=== PATIENT | female | born 1955 | race Caucasian/White ===

== ENCOUNTER → 2016-05-25 | Outpatient (CLI) | payer BC ==
[~2016-05-25] MED LIST: ACET-1256 PO; ALBU4TAB10 PO; ASPI81TA28 PO; CALC600T9 PO; CHOL2000 PO; DOCU-94 PO; HYDR-5688 PO; IBUP-1277 PO; SIMV10TA2 PO; SYMIN160 INH; VNTHFA/IN INH
[2016-05-25 12:23] LABS: BASO % 0.2 %; BASO ABS # 0.01 K/uL (0-0.2); COMPLETE YES; EOS % 0.2 %; HEMATOCRIT 39.5 % (37-47); IG% 0.3 %; LYMPH % 24.7 %; LYMPH ABS # 1.63 K/uL (1.2-3.4); MEAN CELL VOLUME 96.6 fL (80-100); MEAN CORPUSCULAR HEMOGLOBIN 32.8 pg (25-34); MEAN CORPUSCULAR HGB CONC 33.9 g/dl (32-36); MEAN PLATELET VOLUME 9.6 fL (7.4-10.4); MONO % 11.2 %; NEUT % 63.4 %; PLATELET COUNT 260 K/uL (130-400); RED BLOOD COUNT 4.09 M/uL (4.2-5.4); WHITE BLOOD COUNT 6.59 K/uL (4.8-10.8)
[2016-05-25 12:46] LABS: ALT/SGPT 18 U/L (12-78); AST/SGOT 18 U/L (15-37); BLOOD UREA NITROGEN 9 mg/dl (7-18); BUN/CREATININE RATIO 14.1 (10-20); CARBON DIOXIDE 28 mmol/L (21-32); CHLORIDE 102 mmol/L (98-107); CHOLESTEROL 231 mg/dl (0-200); CREATININE 0.61 mg/dl (0.60-1.20); GLUCOSE 100 mg/dl (70-99); SODIUM 137 mmol/L (136-145)
[2016-05-25 12:56] LABS: ALB/GLOB RATIO 0.8 (0.9-2); ALKALINE PHOSPHATASE 124 U/L (45-117); CHOLESTEROL/HDL RATIO 4.4; HDL CHOLESTEROL 52 mg/dl; LDL CHOLESTEROL CALCULATED 160 mg/dl; TRIGLYCERIDES 94 mg/dl (0-150); VERY LOW DENSITY LIPOPROT CALC 19 mg/dl
== END | disposition home or self-care (01) ==
LOC: C.LAB1850 09:47
PROVIDERS: ATTEND Internal Medicine
DX: M81.0 Age-related osteoporosis without current pathological fracture (principal)

== ENCOUNTER 2016-09-08 11:00 | Day surgery (SDC) | payer BC ==
[2016-09-01 08:29] VITALS: BMI 17.0
--- NOTE | 2016-09-01 09:00 | PAT Medication Instructions ---
Service Date Sep 01, 2016. Current Home Medication List Albuterol Hfa (Ventolin Hfa), 2-4 PUFFS INH Q6H PRN for PRN Aspirin (Aspirin Ec), 81 MG PO QPM Budesonide/Formoterol Fumarate (Symbicort 160/4.5 Inhaler ), 2 PUFFS INH BID Calcium Carbonate-Vitamin D (Calcium + D), 1 TAB PO QPM Cholecalciferol (Vitamin D3), 1 CAP PO QPM Simvastatin (Zocor), 10 MG PO QPM Medication Instructions For Your Scheduled Surgery - Take the following medications the morning of surgery: Budesonide/Formoterol Fumarate (Symbicort 160/4.5 Inhaler ), 2 PUFFS INH BID Albuterol Hfa (Ventolin Hfa), 2-4 PUFFS INH Q6H PRN for PRN (use if needed; BRING TO HOSPITAL) - Take the following medications as scheduled the night before surgery: Calcium Carbonate-Vitamin D (Calcium + D), 1 TAB PO QPM Cholecalciferol (Vitamin D3), 1 CAP PO QPM Simvastatin (Zocor), 10 MG PO QPM Aspirin (Aspirin Ec), 81 MG PO QPM Budesonide/Formoterol Fumarate (Symbicort 160/4.5 Inhaler ), 2 PUFFS INH BID Albuterol Hfa (Ventolin Hfa), 2-4 PUFFS INH Q6H PRN for PRN If you have any questions please call us at [phone] or [phone] or [phone]
--- NOTE | 2016-09-01 09:31 | DIAGNOSTIC IMAGING REPORT ---
CHEST PREADMISSION(PA/LAT) CLINICAL HISTORY: Preoperative chest COMPARISON STUDY: 02/03/2016 FINDINGS: The chest is emphysematous configuration. There is no failure. There is no focal pulmonary consolidation. There are no pleural effusions. There is a compression fracture involving either the T12 or L1 superior endplate.[ IMPRESSION: Emphysema. No active disease in the chest. Electronically signed by: Riley Titus M.D. 09/01/2016 9:30 AM Dictated Date/Time: 09/01/2016 9:29 AM
[2016-09-01 09:46] LABS: BASO % 0.1 %; BASO ABS # 0.01 K/uL (0-0.2); COMPLETE YES; EOS % 0.8 %; IG% 0.4 %; LYMPH % 30.3 %; LYMPH ABS # 2.53 K/uL (1.2-3.4); MEAN CORPUSCULAR HEMOGLOBIN 32.8 pg (25-34); MEAN CORPUSCULAR HGB CONC 32.8 g/dl (32-36); MEAN PLATELET VOLUME 9.5 fL (7.4-10.4); MONO % 6.7 %; NEUT % 61.7 %; PLATELET COUNT 258 K/uL (130-400); WHITE BLOOD COUNT 8.34 K/uL (4.8-10.8)
[2016-09-01 09:51] LABS: URINE APPEARANCE CLEAR (CLEAR); URINE BILIRUBIN NEG (NEG); URINE COLOR YELLOW; URINE NITRITE NEG (NEG); URINE PH 7.5 (4.5-7.5); URINE SPECIFIC GRAVITY 1.012 (1.000-1.030); UROBILINOGEN NEG (NEG)
[2016-09-01 10:05] LABS: MANUAL MICROSCOPIC REQUIRED? NO; REVIEW REQ? NO
[2016-09-01 10:15] LABS: INR 0.9 (0.9-1.1); PROTHROMBIN TIME (PATIENT) 9.4 SECONDS (9.0-12.0)
[2016-09-01 11:15] LABS: ALB/GLOB RATIO 0.8 (0.9-2); ALT/SGPT 30 U/L (12-78); AST/SGOT 19 U/L (15-37); BLOOD UREA NITROGEN 10 mg/dl (7-18); BUN/CREATININE RATIO 13.5 (10-20); CARBON DIOXIDE 31 mmol/L (21-32); CHLORIDE 102 mmol/L (98-107); CREATININE 0.71 mg/dl (0.60-1.20); GLUCOSE 95 mg/dl (70-99); POTASSIUM 4.7 mmol/L (3.5-5.1); SODIUM 140 mmol/L (136-145)
[2016-09-01 11:17] LABS: ALKALINE PHOSPHATASE 144 U/L (45-117)
[~2016-09-08] VITALS: Ht 167.6 cm; Wt 49.7 kg
[~2016-09-08 11:00] MED LIST changes: -ACET-1256 PO; -ALBU4TAB10 PO; +ATROPINE SULFATE 0.1 MG/ML 5ML SYR IV PRN; +CEFAZOLIN 2000 MG/60 ML D5W IV SCH; -DOCU-94 PO; +EpHEDrine SULFATE INJ 50 MG/ML AMP IV PRN; +FENTANYL CITRATE INJ 50 MCG/1 ML 2 ML VIAL IV PRN; -HYDR-5688 PO; +HYDROmorphone INJ 1 MG/ML SYR IV PRN; -IBUP-1277 PO; +LACTATED RINGER'S 1000ML 1,000 ML IV SCH; +ONDANSETRON INJ 2 MG/ML 2 ML VIAL IV PRN
[2016-09-08] MEDS ORDERED: FENTANYL CITRATE INJ 50 MCG/1 ML 2 ML VIAL ONE (11:12)
[2016-09-08] MEDS ORDERED: MIDAZOLAM HCL 1 MG/ML 2ML VIAL ONE (11:12)
[2016-09-08 11:40] VITALS: BP 132/98; PULSE 78; TEMP 36.6; O2SAT 96; Ht 167.6 cm; Wt 49.7 kg
--- NOTE | 2016-09-08 12:14 | History and Physical ---
History & Physical Date Sep 08, 2016. History of Present Illness The patient is a 61 year old female with complaints of back and leg pain Past Medical/Surgical History Medical Problems: (1) Hyperlipidemia (2) Pneumothorax Additional History Hepatic Disease: No Endocrine Disorder: No Kidney Disease: No Hypertension: No Heart Disease: No Bleeding Tendencies: No Infectious Diseases: No Allergies Coded Allergies: Diclofenac (Unverified Allergy, Severe, HIVES, 09/08/16) Alendronate (Unverified Allergy, Unknown, DEVELOPED ULCER ON ESOPHAGUS, ) Risedronate (Verified Allergy, Unknown, UNKNOWN, 09/08/16) Varenicline (Unverified Allergy, Unknown, GOT VERY MEAN, 09/08/16) Home Medications Scheduled Aspirin (Aspirin Ec), 81 MG PO QPM Budesonide/Formoterol Fumarate (Symbicort 160/4.5 Inhaler ), 2 PUFFS INH BID Calcium Carbonate-Vitamin D (Calcium + D), 1 TAB PO QPM Cholecalciferol (Vitamin D3), 1 CAP PO QPM Simvastatin (Zocor), 10 MG PO QPM Scheduled PRN Albuterol Hfa (Ventolin Hfa), 2-4 PUFFS INH Q6H PRN for PRN Physical Examination Skin: warm/dry Eyes: normal inspection ENT: normal ENT inspection Head: normocephalic Neck: supple Respiratory/Chest: lungs clear Cardiovascular: regular rate, rhythm Abdomen / GI: normal bowel sounds Back: + pertinent finding (persistent back pain loss of range of motion and flexion extension rotation side bending) Extremities: normal range of motion Neurologic/Psych: no motor/sensory deficits Diagnosis Compression fracture L4 vertebrae. Plan includes a kyphoplasty of the L4 vertebra ASA Classification: ASA Class III Plan of Treatment Kyphoplasty L4 vertebra
[2016-09-08] MEDS ORDERED: BUPIVACAINE 0.5 % 5 MG/1 ML MPF 30ML VIAL ONE (12:17)
[2016-09-08] MEDS ORDERED: SCOPOLAMINE 1.5 MG TDSY TD ONE (12:31)
[2016-09-08] MEDS ORDERED: NURSING VERBAL MED ORDER ONE (12:45)
[2016-09-08] MEDS ORDERED: BACITRACIN OINT 15 GM TUBE ONE (12:53)
[2016-09-08] MEDS ORDERED: ONDANSETRON INJ 2 MG/ML 2 ML VIAL ONE (13:27)
[2016-09-08] MEDS ORDERED: ROCURONIUM BROMIDE 10 MG/ML 5 ML VIAL ONE (13:27)
[2016-09-08] MEDS ORDERED: GLYCOPYRROLATE INJ 0.2 MG/ML VIAL ONE (13:27)
[2016-09-08] MEDS ORDERED: LIDOCAINE HCL 2% 2 ML VIAL (20MG/ML) ONE (13:27)
[2016-09-08] MEDS ORDERED: LARYING-O-JET KIT (LTA) ONE ×2 (13:27)
[2016-09-08] MEDS ORDERED: PROPOFOL IV EMULSION 10 MG/ML 20 ML VIAL IV ONE (13:27)
[2016-09-08] MEDS ORDERED: DEXAMETHASONE SOD INJ 4 MG/ML VIAL ONE (13:27)
[2016-09-08] MEDS ORDERED: SODIUM CHLORIDE 0.9% 1000ML 1,000 ML IV SCH (13:44)
[2016-09-08] MEDS ORDERED: MoRPHine SULFATE 4 MG/ML 1 ML CARP\\VIAL IV PRN (13:45)
[2016-09-08] MEDS ORDERED: ONDANSETRON INJ 2 MG/ML 2 ML VIAL IV PRN (13:45)
[2016-09-08] MEDS ORDERED: CEFAZOLIN IV 1,000 MG in DEXTROSE 5% 50ML 50 ML IV SCH (13:45)
[2016-09-08] MEDS ORDERED: OXYCODONE/ACETAMINOPHEN 5-325 TAB PO PRN ×2 (13:45)
[2016-09-08] MEDS ORDERED: HYDR-5688 PO (13:48)
--- NOTE | 2016-09-08 13:50 | Discharge Instructions ---
Discharge Instructions Date of Service Sep 08, 2016. Admission Reason for Admission: Compression Fracture L4 Discharge Discharge Diagnosis / Problem: SAME ABOVE Discharge Goals Goal(s): Decrease discomfort, Improve function Activity Recommendations Activity Limitations: as noted below Lifting Limitations: gradually increase as tolerated Exercise/Sports Limitations: rest today Shower/Bathe: keep incision dry . Instructions / Follow-Up Instructions / Follow-Up MEDICATIONS: Please take your prescriptions as instructed at your pre-op appointment. SPECIAL CARE: The following information is intended to answer some of the common questions and concerns regarding your surgery. Each patient is an individual and receives individual counselling throughout the course of treatment, from diagnosis to surgery all the way through recovery. What follows is not an exhaustive list, but should be a useful guide to some of the common questions and concerns patients have regarding their surgeries. These are not provided to keep you from calling us; rather, they give you something accurate and concrete to reference as you recover from your procedure. If you need us, we are available to you. As always, if you are not sure about something, call us at [phone]. MEDICAL EMERGENCIES: For these conditions, call 911 or go to your local hospital-based Emergency Department - not [facility] or equivalent. * Paralysis * Severe chest pain or difficulty breathing * Swelling or redness of either leg Spine procedures can be rather complex and though complications are rare, they do occur. In such cases, effective advice regarding emergency situations cannot always be addressed over the telephone. You may be referred to the emergency department for more effective management of your problem. Activity Limitations: It is important to give your body time to heal, so please limit your activities : * In general, don't do anything that moves your spine too much. You should avoid contact sports, twisting or heavy lifting while you recover. * 5-10 pounds is all you should attempt to lift. * You should not plan on driving for approximately 3 weeks and you should avoid traveling more than 30-45 minutes at a time. Longer trips should be broken down with walking breaks spaced appropriately. * Physical therapy is not usually required. * Walking and good posture practices will help you recover and regain your function. * Avoid straining or sudden changes in position. * In general, the goal is to take it easy and recover. Don't cause any new problems. Just relax. Showers: * Do not take a bath, use a Jacuzzi or hot tub or otherwise submerge your incision. * It is usually safe to take a shower 4-5 days after your surgery. * Your incision does not require any special creams or ointments. * Simply clean it with soap and water, dry and re-dress with a clean bandage afterwards. Incision: * Keep incision clean, dry and protected until your first follow-up appointment. * Some amount of drainage and redness is normal. Any drainage should be fairly clear and not have a foul odor. * If you feel anything is wrong or you have excessive drainage, please call us. * Your stitches and froylan will be removed 10-14 days after your surgery. At the time of your first post-op visit. * Neck surgeries are typically closed with a suture underneath the skin. The steri-strips over the incision should be maintained until we see you in the office. Bracing: * You may be provided with a back or neck brace to encourage good posture and prevent injury. It will remind you not to do too much as you heal and will alert others to the fact that you have had a surgery. * Back braces may be removed for showers and when you are resting at home. They must be worn when you are walking around for any period of time or for travel. * For neck surgery, you will likely be provided with two cervical collars. The soft collar ([place] or foam rubber) is worn most commonly throughout the day and while sleeping. The plastic collar (provided at the hospital) is for showering/bathing. * Except while eating, collars should remain in place. More specifically, bracing is provided for a purpose and should be worn. * Please obtain your brace or collars prior to your operation and bring them to the hospital with you on the day of surgery. * You should also bring your collars to your post-op appointment with Dr. Beltran. You should always take good care of your body and practice healthy habits, especially following surgery. You should: * Follow your doctor's treatment plan * Sit and stand properly with good posture (ears over shoulders, shoulders over hips) Don't slouch * Learn to lift correctly * Exercise regularly (low-impact aerobic exercise is especially good, but check with your doctor first) * Generally, be up and walking for 5-10 minutes at a time at least 3-4 times per day from the day you get home * Increasing walking to tolerance until you can walk for 20-30 minutes at a time * Attain and maintain a healthy body weight * Eat healthy foods ( a well-balanced, low-fat diet rich in fruits and vegetables) and get enough calcium * Avoid excessive use of alcohol When to call our office - If you notice any of the following: * Increased pain not relieve by pain medicine * Fevers greater then 100 degrees F, chills or flu symptoms * Increased redness around incision * Drainage from the incision that is not clear * Any foul smelling drainage * Swelling or fluid collection beneath the skin Miscellaneous: * In the hospital, you may be given a walker or cane for support while walking. These are temporary needs and are intended to prevent injuries due to falls. You may discontinue them when you feel strong and steady enough on your feet. * Sleep in a comfortable position. We find that many patients find a lounge chair or recliner with several pillows to be beneficial in the early post-operative period. * The support stockings should be used for 7-10 days and may be discontinued when you are back to walking more and conducting usual household activities. No problem is insignificant. We are here to help you and get you well. Contact us at [phone]. Definitions: Foraminotomy: If part of the disc or a bone spur (osteophyte) is pressing on a nerve as it leaves the vertebra (through an exit called the foramen), a foraminotomy may be done. Otomy means "to make an opening." A foraminotomy is making the opening of the foramen larger, so the nerve can exit without being compressed. Laminotomy: Similar to the foraminotomy, a laminotomy makes a larger opening, this time in your bony plate protecting your spinal canal and spinal cord (the lamina). The lamina may be pressing on your nerve, so the surgeon may make more room for the nerves using a laminotomy. Laminectomy: Sometimes, a laminotomy is not sufficient. The surgeon may need to remove all or part of the lamina. This procedure is called a laminectomy. This can often be done at many levels without any harmful effects. Current Hospital Diet Patient's current hospital diet: Discharge Diet Recommended Diet: Regular Diet Procedures Procedures Performed: L4 Kyphoplasty Pending Studies Studies pending at discharge: no Medical Emergencies . Who to Call and When: Medical Emergencies: If at any time you feel your situation is an emergency, please call 911 immediately. . Non-Emergent Contact Non-Emergency issues call your: Primary Care Provider . "Provider Documentation" section prepared by Tristan Cramer. . VTE Core Measure Inpt VTE Proph given/why not?: Treatment not indicated
--- NOTE | 2016-09-08 13:50 | [facility] Operative Report ---
Operative Report Operative Date Sep 08, 2016. Pre-Operative Diagnosis Compression Fracture L4 Vertebrae Post-Operative Diagnosis same Procedure(s) Performed L4 Kyphoplasty Surgeon Dr. Colby Beltran Organizational Development Specialist Surgeon(s) Tristan Cramer PA-C Estimated Blood Loss 20 ML Findings Compression fracture L4 vertebrae Specimens none per surgeon Complication(s) None Disposition Recovery Room / PACU Indications L4 compression fracture failing to heal with conservative measures Description of Procedure Description of procedure Patient was taken to the operating room placed prone on the Janak frame Janak table. We used 2 seeing arms AP and lateral C arms. We rail able to readily identify the L4 compression fracture. She was scrubbed prepped draped sterile. We engaged both pedicles at L4 using first a trocar a hand-held drill then used a balloon. Each side was inflated to approximately 1.5-2 mL volume side took approximately 3-450 mL of pressure we then withdrew the low and placed in the bone cement. 1.5 mL injected to each pedicle in the vertebral body without incident We irrigated closed 3-0 nylon suture skin anesthetized with Marcaine solution. Sterile dressings applied the patient safely returned to recovery room satisfactory and stable no apparent complications. I attest to the content of the Intraoperative Record and any orders documented therein. Any exceptions are noted below.
--- NOTE | 2016-09-08 14:25 | DIAGNOSTIC IMAGING REPORT ---
LUMBAR SPINE 2 OR 3 VIEW CLINICAL HISTORY: 61 years-old Female presenting with L4 KYPHOPLASTY. TECHNIQUE: 1 fluoroscopic spot image of a frontal view of the lumbar spine was obtained as part of an intraoperative procedure. COMPARISON: 07/29/2016. FINDINGS/IMPRESSION: Radiodensity in the region of the L4 vertebral body represents kyphoplasty material. Scoliotic curvature and degenerative changes of the lumbar spine. Please see separately dictated surgical report for further findings. Fluoroscopy dosage (mGy): Not available. Fluoroscopy time: 79 seconds. Number of fluoroscopic spot images: 1. Electronically signed by: Rodriguez Mccabe M.D. 09/08/2016 2:23 PM Dictated Date/Time: 09/08/2016 2:22 PM
[2016-09-08 14:30] VITALS: PULSE 76
--- NOTE | 2016-09-08 14:31 | Anesthesiology Progress Note ---
Anesthesia Post Op Note Date & Time Sep 08, 2016 at 14:31 Vital Signs Pain Intensity: 0 Vital Signs Past 12 Hours Date Time Temp Pulse Resp B/P (MAP) Pulse Ox O2 Delivery O2 Flow Rate FiO2 09/08/16 14:25 36.0 81 18 155/88 94 Room Air 09/08/16 14:15 69 19 164/85 93 Room Air 09/08/16 13:55 99 22 157/94 100 Oxymask 10 09/08/16 13:49 36.0 78 16 174/100 100 Oxymask 10 09/08/16 11:40 36.6 78 18 132/98 (109) 96 Room Air Notes Mental Status: alert / awake / arousable, participated in evaluation Pt Amnestic to Procedure: Yes Nausea / Vomiting: adequately controlled Pain: adequately controlled Airway Patency, RR, SpO2: stable & adequate BP & HR: stable & adequate Hydration State: stable & adequate Anesthetic Complications: no major complications apparent
[2016-09-08 15:10] VITALS: BP 140/69; TEMP 36.4; O2SAT 92
[2016-09-08] MEDS ORDERED: CHECK SCOPOLAMINE PATCH PLACEMENT SCH (16:00)
[2016-09-08] MEDS ORDERED: CHOLECALCIFEROL 1000 INTER.UNIT TAB PO SCH (21:00)
[2016-09-08] MEDS ORDERED: CALCIUM 600MG + VIT D 400 IU TAB PO SCH (21:00)
[2016-09-08] MEDS ORDERED: SIMVASTATIN 10 MG TAB PO SCH (21:00)
[2016-09-08] MEDS ORDERED: ASPIRIN 81 MG ECTAB PO SCH (21:00)
[2016-09-08] MEDS ORDERED: BUDESONIDE/FORMOTEROL FUMARATE 160/4.5 60 PUFFS/INHALER INH SCH (21:00)
== END 2016-09-08 15:35 | disposition home or self-care (01) ==
LOC: C.ACU 11:00
PROVIDERS: ATTEND Orthopaedic Surgery Orthopaedic Surgery of the Spine
DX: M48.56XA Collapsed vertebra, not elsewhere classified, lumbar region, initial encounter for fracture (principal); X58.XXXA Exposure to other specified factors, initial encounter; E78.5 Hyperlipidemia, unspecified; Z79.82 Long term (current) use of aspirin; Z79.899 Other long term (current) drug therapy

== ENCOUNTER 2016-11-18 06:26 | Day surgery (SDC) | payer BC ==
[2016-11-18] VITALS (10 sets, daily range): BP systolic 91–156; BP diastolic 51–75; PULSE 70–103; TEMP 36.7–37.1; O2SAT 94–100; Ht 167.6 cm; Wt 49.0 kg
[~2016-11-18] VITALS: Ht 167.6 cm; Wt 49.0 kg
[~2016-11-18 06:26] MED LIST changes: -ATROPINE SULFATE 0.1 MG/ML 5ML SYR IV PRN; -CEFAZOLIN 2000 MG/60 ML D5W IV SCH; -EpHEDrine SULFATE INJ 50 MG/ML AMP IV PRN; -FENTANYL CITRATE INJ 50 MCG/1 ML 2 ML VIAL IV PRN; +HYDR-5688 PO; -HYDROmorphone INJ 1 MG/ML SYR IV PRN; -LACTATED RINGER'S 1000ML 1,000 ML IV SCH; -ONDANSETRON INJ 2 MG/ML 2 ML VIAL IV PRN
[2016-11-18] MEDS ORDERED: IBUP-1277 PO (07:00)
[2016-11-18] MEDS ORDERED: ACET-1256 PO (07:00)
--- NOTE | 2016-11-18 08:35 | Discharge Instructions ---
Discharge Instructions Procedure Procedure Date: Nov 18, 2016. Reason for visit: Lumbar Spinal Stenosis. Discharge Discharge Date: Nov 18, 2016. Discharge Diagnosis: left leg radiculopathy. Spinal stenosis Instructions Activity Recommendations: 1 Day with no driving/machine use Return to School/Work: no limitations Recommended Home Diet: Resume Previous Diet Allergies Coded Allergies: Diclofenac (Unverified Allergy, Severe, HIVES, 11/18/16) Alendronate (Unverified Allergy, Unknown, DEVELOPED ULCER ON ESOPHAGUS, ) Risedronate (Verified Allergy, Unknown, UNKNOWN, 11/18/16) Varenicline (Unverified Allergy, Unknown, GOT VERY MEAN, 11/18/16) [place] Recommendations: Call your doctor if: * Temperature above 101 degrees * Pain not relieved by pain medicine ordered * There is increased drainage or redness from any incision * You have any unanswered questions or concerns. Your Doctors Instructions noted above were prepared by provider Riley Titus. Patient Signature Section: Patient Instructions Signature Page Lizette Albarado Patient (or Guardian) Signature/Date: I have read and understand the instructions given to me by my caregivers. Caregiver/RN/Doctor Signature/Date: The above-named patient and/or guardian has received patient instructions on this date. + Original Patient Signature Page (only) stays with chart. Please make copy for patient.
[2016-11-18] MEDS ORDERED: ACETAMINOPHEN 500 MG TAB PO PRN (08:45)
--- NOTE | 2016-11-18 09:22 | DIAGNOSTIC IMAGING REPORT ---
CT LUMBAR SPINE POST MYELOGRAM CT DOSE: 563.85 mGy.cm CLINICAL HISTORY: Lumbar spinal stenosis. Left leg radiculopathy. TECHNIQUE: Imaging was performed following a lumbar myelogram. Helical images were acquired in the transverse plane. Sagittal and coronal reformatted imaging was performed. A dose lowering technique was utilized adhering to the principles of ALARA. COMPARISON STUDY: Outside MRI dated 08/17/2016 FINDINGS: There is a superior endplate L1 compression fracture. There is an L4 compression fracture status post a vertebroplasty. There is extruded cement within the L 4-5 disc. There is a superior endplate L5 compression fracture. T12-L1: There is minimal retropulsion of the L1 compression fracture. This does not result in significant spinal stenosis. There is no significant foraminal narrowing. L1-2 level: There is a mild circumferential disc bulge. There is a small amount of epidural contrast anterior to thecal sac. There is no significant spinal or foraminal stenosis. L2-3 level: There is a mild circumferential disc bulge. There is very slight triangular narrowing of the spinal canal. There is no significant foraminal narrowing L3-4 level: There is a mild circumferential disc bulge. There is mild triangular narrowing of the spinal canal. There is minimal bilateral foraminal narrowing. L4-5 level: There is a grade 1 spinal listhesis of L4 and L5. There is a circumferential disc bulge. There is mild triangular spinal stenosis. There is marked left-sided foraminal narrowing. There is mild to moderate right-sided foraminal narrowing. L5-S1 level: There is a mild circumferential disc bulge present. There is no significant spinal or foraminal stenosis. No abnormalities of the conus are visualized. There is a mild spinal curvature convex to the right. IMPRESSION: 1. Old L1 and L4 vertebral body compression fractures 2. Multilevel spondylitic change. Minor spinal canal narrowing at the L2-3, L3-4, and L4-5 levels. 3. Multilevel foraminal narrowing, most pronounced at the L4-5 level on the left Electronically signed by: Riley Titus M.D. 11/18/2016 9:21 AM Dictated Date/Time: 11/18/2016 8:52 AM
--- NOTE | 2016-11-18 09:34 | DIAGNOSTIC IMAGING REPORT ---
LUMBAR MYELOGRAM CLINICAL HISTORY: Low back pain with left leg radiculopathy COMPARISON STUDY: Outside MRI dated 08/09/2016 FINDINGS: A timeout was performed. The risks of the procedure were explained the patient informed consent was obtained. Patient prepped and draped in sterile fashion. The skin was anesthetized 1% lidocaine. The fluoroscopic guidance, 22-gauge spinal needle was introduced into the thecal sac at the L5-S1 level. 12 cc of Isovue-M 200 was instilled into the thecal sac. There are old L1 and L4 vertebral body compression fractures. The patient is status post an L4 vertebroplasty. There are multilevel disc bulges. There is no evidence of nerve root amputation. A small amount of epidural contrast is suspected at the L2 level. IMPRESSION: 1. Mild multilevel disc bulges 2. No evidence of nerve root amputation 3. No evidence of high-grade spinal stenosis Electronically signed by: Riley Titus M.D. 11/18/2016 9:32 AM Dictated Date/Time: 11/18/2016 9:25 AM
== END 2016-11-18 12:30 | disposition home or self-care (01) ==
LOC: C.ACU 06:26
PROVIDERS: ATTEND Orthopaedic Surgery Orthopaedic Surgery of the Spine
DX: M48.06 Spinal stenosis, lumbar region (principal)

== ENCOUNTER → 2016-12-07 | Outpatient (CLI) | payer BC ==
[~2016-12-07] MED LIST changes: +ACET-1256 PO; -HYDR-5688 PO; +IBUP-1277 PO
[2016-12-07 10:14] LABS: BASO % 0.3 %; BASO ABS # 0.02 K/uL (0-0.2); COMPLETE YES; EOS % 1.4 %; IG% 0.1 %; LYMPH % 30.9 %; LYMPH ABS # 2.19 K/uL (1.2-3.4); MEAN CELL VOLUME 99.1 fL (80-100); MEAN CORPUSCULAR HEMOGLOBIN 32.9 pg (25-34); MEAN CORPUSCULAR HGB CONC 33.2 g/dl (32-36); MEAN PLATELET VOLUME 9.7 fL (7.4-10.4); MONO % 9.7 %; NEUT % 57.6 %; PLATELET COUNT 249 K/uL (130-400); RED BLOOD COUNT 4.44 M/uL (4.2-5.4); WHITE BLOOD COUNT 7.09 K/uL (4.8-10.8)
[2016-12-07 10:39] LABS: ALT/SGPT 20 U/L (12-78); AST/SGOT 20 U/L (15-37); BLOOD UREA NITROGEN 10 mg/dl (7-18); BUN/CREATININE RATIO 17.3 (10-20); CALCIUM 9.6 mg/dl (8.5-10.1); CARBON DIOXIDE 31 mmol/L (21-32); CHLORIDE 103 mmol/L (98-107); CREATININE 0.56 mg/dl (0.60-1.20); GLUCOSE 83 mg/dl (70-99); POTASSIUM 3.8 mmol/L (3.5-5.1); SODIUM 141 mmol/L (136-145)
[2016-12-07 10:50] LABS: ALB/GLOB RATIO 0.9 (0.9-2); ALKALINE PHOSPHATASE 144 U/L (45-117); CHOLESTEROL 190 mg/dl (0-200); CHOLESTEROL/HDL RATIO 3.4; HDL CHOLESTEROL 56 mg/dl; LDL CHOLESTEROL CALCULATED 105 mg/dl; TRIGLYCERIDES 145 mg/dl (0-150); VERY LOW DENSITY LIPOPROT CALC 29 mg/dl
== END | disposition home or self-care (01) ==
LOC: C.LAB 09:19
PROVIDERS: ATTEND Internal Medicine
DX: C21.0 Malignant neoplasm of anus, unspecified (principal); M81.0 Age-related osteoporosis without current pathological fracture; M48.061 Spinal stenosis, lumbar region without neurogenic claudication; I65.29 Occlusion and stenosis of unspecified carotid artery; E78.5 Hyperlipidemia, unspecified

== ENCOUNTER → 2017-01-03 | Outpatient (CLI) | payer BC ==
[~2017-01-03] MED LIST changes: +DOCU-94 PO
== END | disposition home or self-care (01) ==
LOC: C.MAMM 10:58
PROVIDERS: ATTEND Physician Assistant
DX: M81.0 Age-related osteoporosis without current pathological fracture (principal)

== ENCOUNTER → 2017-01-11 | Outpatient (CLI) | payer BC ==
--- NOTE | 2017-01-11 11:58 | DIAGNOSTIC IMAGING REPORT ---
MRI LUMBAR SPINE W/O CONTRAST CLINICAL HISTORY: Chronic low back pain. Osteoporosis. Lumbar spine fractures. TECHNIQUE: Sagittal and axial T1, T2 and STIR images were obtained. COMPARISON STUDY: CT scan dated 11/18/2016 OBSERVATIONS: There is an old superior endplate L1 compression fracture. There is an old L4 compression fracture status post vertebroplasty. There is a subacute superior endplate L5 compression fracture. The spinal cord terminates in normal fashion. L1-2: No disc protrusions or extrusions. No evidence of spinal canal or neural foraminal compromise. L2-3: There is a circumferential disc bulge, with minimal spinal canal narrowing. There is no significant foraminal narrowing L3-4: There is a minor circumferential disc bulge. There is very slight spinal canal narrowing. There is mild bilateral foraminal narrowing. L4-5: There is a circumferential disc bulge with very mild spinal canal narrowing. There is bilateral foraminal stenosis which is moderate to severe in the left L5-S1: There is a mild circumferential disc bulge. There is no significant spinal stenosis. There is mild to moderate right-sided foraminal narrowing. The conus medullaris and cauda equina appear normal. IMPRESSION: 1. Old L1 and L4 vertebral body compression fractures 2. Subacute superior endplate L5 compression fracture 3. Multilevel spondylitic changes, with very mild spinal canal narrowing at the L2-3, L3-4, and L4-5 levels. There is also multilevel foraminal narrowing most pronounced at the L4-5 level on the left. Electronically signed by: Riley Titus M.D. 01/11/2017 11:57 AM Dictated Date/Time: 01/11/2017 11:51 AM
--- NOTE | 2017-01-11 12:41 | DIAGNOSTIC IMAGING REPORT ---
LUMBAR SPINE 6 VIEWS WITH FLEXION AND EXTENSION CLINICAL HISTORY: Lumbar spine fracture COMPARISON STUDY: 11/08/2016 FINDINGS: There is a mild scoliosis. There are L1 L4 and L5 compression fracture similar to the preceding study. There is a grade 1 spinal stenosis of L4 and L5. There are postprocedural changes of a prior L4 vertebroplasty. There is no evidence of instability on flexion or extension. IMPRESSION: 1. No change in the appearance of the L1, L4, and L5 compression fractures 2. Grade 1 spondylolisthesis of L4 and L5 3. No evidence of instability on flexion or extension Electronically signed by: Riley Titus M.D. 01/11/2017 12:40 PM Dictated Date/Time: 01/11/2017 12:38 PM
== END | disposition home or self-care (01) ==
LOC: C.MRI 10:21
PROVIDERS: ATTEND Physician Assistant Surgical
DX: M80.08XA Age-related osteoporosis with current pathological fracture, vertebra(e), initial encounter for fracture (principal); X58.XXXA Exposure to other specified factors, initial encounter; M99.73 Connective tissue and disc stenosis of intervertebral foramina of lumbar region; M43.16 Spondylolisthesis, lumbar region

== ENCOUNTER → 2017-01-16 | Outpatient (CLI) | payer BC ==
--- NOTE | 2017-01-17 15:09 | MAMMOGRAPHY REPORT ---
BILATERAL DIGITAL SCREENING MAMMOGRAM TOMOSYNTHESIS WITH CAD: 01/16/2017 CLINICAL HISTORY: Routine screening. Patient has no complaints. TECHNIQUE: Breast tomosynthesis in addition to standard 2D mammography was performed. Current study was also evaluated with a Computer Aided Detection (CAD) system. COMPARISON: Comparison is made to exams dated: 01/20/2016 mammogram, 01/20/2016 stereotactic biopsy, 01/12/2016 mammogram, 01/05/2015 mammogram, 01/02/2014 mammogram, and 12/28/2012 mammogram - [facility]. BREAST COMPOSITION: The tissue of both breasts is extremely dense, which lowers the sensitivity of m ammography. FINDINGS: Bilateral subglandular implants have been removed since the prior exam. There is a stable metallic biopsy marker clip in the right lateral breast. There are new clusters of microcalcificatio ns throughout the left breast in the lower inner middle to posterior breast and anterior aspect of th e breast which could represent postsurgical change. Given that they were not present on prior mammog shar, additional spot magnification views are recommended for further evaluation. No other suspicious mass, architectural distortion or suspicious microcalcifications are seen bilater ally. IMPRESSION: ACR BI-RADS CATEGORY 0: INCOMPLETE EVALUATION: NEED ADDITIONAL IMAGING EVALUATION Status post bilateral implant removal. There are new microcalcifications at the left breast for whic h additional imaging evaluation is needed. The patient will be called to schedule an appointment. Approximately 10% of breast cancers are not detected with mammography. A negative mammographic report should not delay biopsy if a clinically suggestive mass is present. Joyce Woodall M.D. ay/:01/16/2017 15:58:48 Tractor Trailer Truck Driver: Birgit MONTEJO,R, M, [facility] letter sent: Addl Imaging 0 BI-RADS Code: ACR BI-RADS Category 0: Incomplete Evaluation: Need Additional Imaging Evaluation
== END | disposition home or self-care (01) ==
LOC: C.MAMM 14:53
PROVIDERS: ATTEND Internal Medicine
DX: Z12.31 Encounter for screening mammogram for malignant neoplasm of breast (principal); R92.0 Mammographic microcalcification found on diagnostic imaging of breast

== ENCOUNTER → 2017-01-26 | Outpatient (CLI) | payer BC ==
--- NOTE | 2017-01-26 14:36 | MAMMOGRAPHY REPORT ---
UNILATERAL LEFT DIGITAL DIAGNOSTIC MAMMOGRAM: 01/26/2017 CLINICAL HISTORY: Callback from screening mammogram for new left breast calcifications. The patient underwent interval bilateral implant removal since her 2016 exam. TECHNIQUE: Spot magnification left CC and ML views were obtained. COMPARISON: Comparison is made to exams dated: 01/16/2017 mammogram, 01/20/2016 mammogram, 6 stereotactic biopsy, 01/12/2016 mammogram, 01/05/2015 mammogram, and 01/02/2014 mammogram - [facility]. BREAST COMPOSITION: The tissue of the left breast is extremely dense, which lowers the sensitivity o f mammography. FINDINGS: Spot magnification views demonstrate new regionally distributed calcifications throughout the left lower inner quadrant and also the left anterior breast medial and laterally. An 8 mm fat de nsity mass is seen within the left lower inner quadrant, consistent with benign fat necrosis. Some o f the calcifications are seen to be along the edge of the fat density mass, consistent with dystrophi c calcifications from fat necrosis. The remainder of the regional calcifications within the left low er inner quadrant are predominantly punctate and amorphous, with the calcifications seen anteriorly a re punctate and amorphous as well as coarse heterogeneous. Given that some of the calcifications are clearly dystrophic and given the history of recent implant removal, the calcifications are probably benign and likely represent dystrophic calcifications/postsurgical changes. IMPRESSION: ACR-BI-RADS CATEGORY 3: PROBABLY BENIGN New regional calcifications involving the left lower inner quadrant and left anterior breast are prob ably benign and likely represents dystrophic calcification/post surgical changes related to implant r emoval. Recommend follow-up diagnostic tomosynthesis mammograms of the left breast in 6 months to re evaluate the calcifications. The patient has been verbally notified of the results. Approximately 10% of breast cancers are not detected with mammography. A negative mammographic report should not delay biopsy if a clinically suggestive mass is present. Faith Engle M.D. /:01/26/2017 09:50:20 Corset Maker: Mattie Messina, [facility] letter sent: Follow Up Recommended 3 BI-RADS Code: ACR-BI-RADS Category 3: Probably Benign
== END | disposition home or self-care (01) ==
LOC: C.MAMM 08:32
PROVIDERS: ATTEND Internal Medicine
DX: R92.1 Mammographic calcification found on diagnostic imaging of breast (principal)

== ENCOUNTER → 2017-02-14 | Outpatient (CLI) | payer BC ==
[~2017-02-14] MED LIST changes: +MULT-190 PO
--- NOTE | 2017-02-14 08:52 | DIAGNOSTIC IMAGING REPORT ---
L-SPINE MIN 4 VIEWS ROUTINE HISTORY: Postprocedural pain POST OP COMPARISON: 01/11/2017 FINDINGS: Pre-existing compression deformities of L1 and L4 and L5 considered similar to the prior study. Mild S-shaped scoliosis. Interval vertebroplasty at L1 and L5. Pre-existing vertebroplasty L4. Minimal grade 1 anterolisthesis of L4 on L5 unchanged from the prior study. Mild degenerative disc changes throughout. IMPRESSION: 1. Interval vertebroplasty at L1 and L5. 2. The existing vertebroplasty L4. 3. Moderate compression deformities unchanged from prior exam. The above report was generated using voice recognition software. It may contain grammatical, syntax or spelling errors. Electronically signed by: Jackson Walter M.D. 02/14/2017 8:50 AM Dictated Date/Time: 02/14/2017 8:48 AM
== END | disposition home or self-care (01) ==
LOC: C.RAD 08:27
PROVIDERS: ATTEND Neurological Surgery
DX: Z48.89 Encounter for other specified surgical aftercare (principal)

== ENCOUNTER → 2017-03-13 | Outpatient (CLI) | payer BC ==
[~2017-03-13] MED LIST changes: -MULT-190 PO
--- NOTE | 2017-03-13 15:45 | DIAGNOSTIC IMAGING REPORT ---
LUMBAR SPINE 2 OR 3 VIEWS HISTORY: 61 years-old Female Z48.89 chronic low back pain with history of multiple surgeries. COMPARISON: Lumbar spine radiograph 02/14/2017 TECHNIQUE: 2 views of the lumbar spine FINDINGS: Bones are moderately demineralized. Dextroscoliosis of the lumbar spine with multiple compression deformities redemonstrated. Prior vertebral plasty again seen at the L1, L4 and L5 levels. Grade 1 anterolisthesis L4 on L5 is unchanged, 5 mm. No acute compression deformity or retropulsion identified. Multilevel endplate spurring and facet arthrosis with severe facet disease of the lower lumbar levels. Moderate degenerative changes of the bilateral hips. No acute fracture or subluxation identified. IMPRESSION: 1. No acute fracture or subluxation identified. 2. Moderate bone demineralization with remote compression deformities and prior vertebroplasty involving the L1, L4 and L5 vertebral bodies. 3. Unchanged grade 1 anterolisthesis L4 on L5 likely secondary to long-standing advanced facet disease. 4. Dextro scoliosis. The above report was generated using voice recognition software. It may contain grammatical, syntax or spelling errors. Electronically signed by: Mane Jaime M.D. 03/13/2017 3:44 PM Dictated Date/Time: 03/13/2017 3:41 PM
== END | disposition home or self-care (01) ==
LOC: C.RAD 15:27
PROVIDERS: ATTEND Neurological Surgery
DX: Z48.89 Encounter for other specified surgical aftercare (principal); M85.88 Other specified disorders of bone density and structure, other site; M48.56XA Collapsed vertebra, not elsewhere classified, lumbar region, initial encounter for fracture; M43.16 Spondylolisthesis, lumbar region; M41.86 Other forms of scoliosis, lumbar region

== ENCOUNTER → 2017-04-04 | Outpatient (CLI) | payer BC ==
[~2017-04-04] MED LIST changes: +MULT-190 PO
== END | disposition home or self-care (01) ==
LOC: C.PAPS 09:20
PROVIDERS: ATTEND Physician Assistant
DX: Z01.419 Encounter for gynecological examination (general) (routine) without abnormal findings (principal)

== ENCOUNTER → 2017-05-05 | Outpatient (CLI) | payer BC ==
[2017-05-05 14:15] LABS: CALCIUM 9.6 mg/dl (8.5-10.1); CREATININE 0.73 mg/dl (0.60-1.20)
== END | disposition home or self-care (01) ==
LOC: C.LAB1850 11:21
PROVIDERS: ATTEND Internal Medicine Rheumatology
DX: E55.9 Vitamin D deficiency, unspecified (principal); M80.00XA Age-related osteoporosis with current pathological fracture, unspecified site, initial encounter for fracture; E61.8 Deficiency of other specified nutrient elements

== ENCOUNTER → 2017-06-14 | Outpatient (CLI) | payer BC ==
[2017-06-14 10:12] LABS: BASO % 0.1 %; BASO ABS # 0.01 K/uL (0-0.2); EOS % 1.5 %; EOS ABS # 0.11 K/uL (0-0.5); HEMATOCRIT 42.2 % (37-47); HEMOGLOBIN 13.6 g/dL (12.0-16.0); IG# 0.01 K/uL (0.00-0.02); LYMPH % 32.4 %; LYMPH ABS # 2.34 K/uL (1.2-3.4); MEAN CELL VOLUME 97.9 fL (80-100); MEAN CORPUSCULAR HEMOGLOBIN 31.6 pg (25-34); MEAN CORPUSCULAR HGB CONC 32.2 g/dl (32-36); MEAN PLATELET VOLUME 9.4 fL (7.4-10.4); MONO % 10.7 %; MONO ABS # 0.77 K/uL (0.11-0.59); NEUT % 55.2 %; NEUT ABS # 3.99 K/uL (1.4-6.5); PLATELET COUNT 246 K/uL (130-400); RED CELL DISTRIBUTION WIDTH CV 14.1 % (11.5-14.5); RED CELL DISTRIBUTION WIDTH SD 50.5 fL (36.4-46.3); WHITE BLOOD COUNT 7.23 K/uL (4.8-10.8)
[2017-06-14 10:44] LABS: ALBUMIN 3.4 gm/dl (3.4-5.0); ALKALINE PHOSPHATASE 143 U/L (45-117); ALT/SGPT 18 U/L (12-78); AST/SGOT 21 U/L (15-37); BLOOD UREA NITROGEN 9 mg/dl (7-18); CALCIUM 10.1 mg/dl (8.5-10.1); CARBON DIOXIDE 34 mmol/L (21-32); CREATININE 0.68 mg/dl (0.60-1.20); GLUCOSE 97 mg/dl (70-99); POTASSIUM 4.3 mmol/L (3.5-5.1); SODIUM 140 mmol/L (136-145)
[2017-06-14 10:48] LABS: CHOLESTEROL 176 mg/dl (0-200); LDL CHOLESTEROL CALCULATED 98 mg/dl; TOTAL PROTEIN 7.3 gm/dl (6.4-8.2)
== END | disposition home or self-care (01) ==
LOC: C.LAB 09:31
PROVIDERS: ATTEND Internal Medicine
DX: I65.29 Occlusion and stenosis of unspecified carotid artery (principal); M81.0 Age-related osteoporosis without current pathological fracture; R74.8 Abnormal levels of other serum enzymes; J43.9 Emphysema, unspecified; E78.5 Hyperlipidemia, unspecified; E55.9 Vitamin D deficiency, unspecified; D47.2 Monoclonal gammopathy

== ENCOUNTER → 2017-09-19 | Outpatient (CLI) | payer BC ==
[~2017-09-19] MED LIST changes: +OPTIRAY 320 IV PRN
--- NOTE | 2017-09-19 16:28 | DIAGNOSTIC IMAGING REPORT ---
(CHEST FOR PE) ANGIO WITH CT DOSE: 210.74 mGy.cm HISTORY: 62 years-old Female with CHEST PAIN. Acute atypical chest pain with shortness of breath TECHNIQUE: Multiple CTA images of the chest were obtained after the intravenous administration of 116 ml Optiray 320. Coronal and sagittal MIPS were obtained from the axial data set and were submitted for review. A dose lowering technique was utilized adhering to the principles of ALARA. COMPARISON: Chest radiograph 09/01/2016 FINDINGS: CTA: The heart is within the upper limits of normal in size. No pericardial effusion. Coronary arterial calcifications are noted. The thoracic aorta is normal in both course and caliber with moderate mixed plaquing. The imaged great vessels appear patent. The right vertebral artery is markedly diminutive in size. The pulmonary arterial tree is opacified to the level of the proximal subsegmental branches and demonstrates no focal filling defects to suggest pulmonary thromboembolic disease. CT CHEST: No dominant thyroid nodule. There are no pathologically enlarged lymph nodes about the chest identified. Severe emphysema with moderate bilateral bronchial wall thickening. Multifocal areas of mucous plugging noted within the lung bases. Small left Bochdalek hernia. Minimal subsegmental dependent atelectasis about the right lung base. No focal airspace consolidation to suggest pneumonia. 5 mm linear density of the superior segment left lower lobe suggests an area of scarring. No definite suspicious pulmonary nodules identified. Bilateral subpleural reticulation compatible with areas of mild fibrosis. There is a 4 mm linear subpleural opacity of the left upper lobe, image 198 series 4. 2 mm fissural lymph node on image 181 series 4 on the left. Biapical pleural-parenchymal scarring. 3 mm nodule of the right upper lobe, image 246 series 4. No acute process of the imaged upper abdomen. Soft tissues and breast parenchyma appear unremarkable. Bones appear intact. Bones are demineralized. Vertebroplasty changes with remote compression deformity at L1. 30% anterior endplate compression deformity at T6 without retropulsion, age-indeterminate. IMPRESSION: 1. No acute aortic pathology or evidence of pulmonary thromboembolic disease. 2. No focal airspace consolidation to suggest pneumonia. 3. Advanced emphysema with bronchitis and mild mucous plugging. 4. There are a few pulmonary nodules about the lungs bilaterally measuring up to 4 mm which suggest areas of probable scarring. As a precautionary measure, follow-up guidelines are provided below. 5. Remote compression deformity with vertebroplasty changes at L1. 6. Age-indeterminate 25% anterior endplate compression deformity of the T6 vertebral body appears new from 09/19/2016. Correlate with point tenderness. Please refer to below summary of Fleischner criteria recommendations for follow-up of incidental CT nodules (Nguyen Araujo, Guidelines for management of small pulmonary nodules detected on CT scans: A statement from the Fleischner Society, Radiology 237: [phone].) SOLID NODULES Multiple nodules size: <6 mm * Low risk patients: no routine follow-up * high risk patients: optional CT at 12 months Note: newly detected indeterminate nodule in persons 35 years of age or older. * Low risk patients: minimal or absent history of smoking and/or other known risk factors * high risk patients: history of smoking or of other known risk factors (e.g. first degree relative with lung cancer, or exposure to asbestos, radon, uranium) * if a nodule up to 8 mm is partly solid or is ground glass further follow-up is required after 24 months to exclude possible slow growing adenocarcinoma (SHAHEED) The above report was generated using voice recognition software. It may contain grammatical, syntax or spelling errors. Electronically signed by: Mane Jaime M.D. 09/19/2017 4:27 PM Dictated Date/Time: 09/19/2017 4:16 PM
--- NOTE | 2017-09-19 18:24 | DIAGNOSTIC IMAGING REPORT ---
THORACIC SPINE 3 VIEWS ROUTINE HISTORY: 62 years-old Female PAIN IN THORACIC SPINE acute mid thoracic spine pain COMPARISON: CTA of the chest of same day, chest radiograph 09/19/2016. TECHNIQUE: 3 views of the thoracic spine FINDINGS: Age-indeterminate 40% anterior endplate compression deformity of the T6 vertebral body, new from 09/19/2016 without retropulsion. Remote compression deformity with vertebroplasty changes at L1. No additional acute fracture or subluxation. Multilevel spondylitic spurring and facet arthropathy. Mild multilevel intervertebral disc space narrowing. Degenerative changes of the cervical spine. Surgical clip projects over the right mediastinum. Convex left curvature of the thoracolumbar junction. IMPRESSION: 1. Age-indeterminate anterior endplate compression deformity at T6 without retropulsion is new from 09/19/2016. Correlate with point tenderness. 2. Chronic compression deformity with vertebroplasty changes at L1. The above report was generated using voice recognition software. It may contain grammatical, syntax or spelling errors. Electronically signed by: Mane Jaime M.D. 09/19/2017 6:23 PM Dictated Date/Time: 09/19/2017 6:16 PM
== END | disposition home or self-care (01) ==
LOC: C.CTS 15:39
PROVIDERS: ATTEND Physician Assistant Medical
DX: M54.6 Pain in thoracic spine (principal); R07.81 Pleurodynia; J43.9 Emphysema, unspecified; J40 Bronchitis, not specified as acute or chronic; R91.8 Other nonspecific abnormal finding of lung field

== ENCOUNTER → 2017-09-22 | Outpatient (CLI) | payer BC ==
[~2017-09-22] MED LIST changes: -OPTIRAY 320 IV PRN
--- NOTE | 2017-09-22 16:13 | DIAGNOSTIC IMAGING REPORT ---
THORACIC SPINE WITHOUT HISTORY: 62 years-old Female R93.7 Compression fracture of [id number] acute mid back pain with acute compression fracture. COMPARISON: CTA of the chest 09/19/2017 TECHNIQUE: Multiplanar multisequence MRI of the thoracic spine was obtained without the use of IV contrast. FINDINGS: Remote compression deformity with vertebroplasty changes at L1 redemonstrated. Chronic 4 mm retropulsion of the superior posterior endplate at this level is noted causing mild central canal stenosis. There is an acute 30% anterior endplate compression deformity of the T6 vertebral body again noted with moderate bone marrow edema. There is no significant retropulsion. There is however a focal kyphotic curvature of approximately 23 degrees centered at the T6-C7 interspace. No underlying bone lesion definitively seen. There is slight retropulsion toward the right neuroforamen causing mild right foraminal narrowing. Central canal and left foramen appear patent at this level. No additional focal bone marrow edema or acute fracture identified. Signal within the thoracic spinal cord appears normal. Conus medullaris terminates at L1. No acute process of the imaged intrathoracic structures. Fluid signal within the lung parenchyma but the super segment left lower lobe. IMPRESSION: 1. Acute 30% anterior endplate compression deformity of the T6 vertebral body confirmed with associated moderate bone marrow edema. Slight retropulsion towards the right neuroforamen results in mild right neural foraminal stenosis. No significant central canal or left foraminal stenosis. 2. Remote compression deformity with vertebroplasty changes at L1. The above report was generated using voice recognition software. It may contain grammatical, syntax or spelling errors. Electronically signed by: Mane Jaime M.D. 09/22/2017 4:12 PM Dictated Date/Time: 09/22/2017 4:06 PM
== END | disposition home or self-care (01) ==
LOC: C.MRIBC 14:27
PROVIDERS: ATTEND Physician Assistant Medical
DX: R93.7 Abnormal findings on diagnostic imaging of other parts of musculoskeletal system (principal); M53.84 Other specified dorsopathies, thoracic region

== ENCOUNTER → 2017-10-05 | Outpatient (CLI) | payer BC ==
--- NOTE | 2017-10-05 11:19 | DIAGNOSTIC IMAGING REPORT ---
CHEST 2 VIEWS ROUTINE CLINICAL HISTORY: S22.059A, UNSPECIFIED FRACTURE OF T5-T6 VERTEBRA trauma COMPARISON STUDY: 09/01/2016 FINDINGS: Diffuse emphysematous change. Chronic scarring of both hemidiaphragms. No focal infiltrate. No significant cardiac enlargement. Interval moderate compression deformity of a midthoracic vertebral body. IMPRESSION: 1. No acute process the chest. 2. Emphysematous change. 3. Moderate compression deformity of a midthoracic vertebral body. The above report was generated using voice recognition software. It may contain grammatical, syntax or spelling errors. Electronically signed by: Jackson Walter M.D. 10/05/2017 11:18 AM Dictated Date/Time: 10/05/2017 11:16 AM
[2017-10-05 12:16] LABS: BASO % 0.1 %; BASO ABS # 0.01 K/uL (0-0.2); EOS % 0.7 %; EOS ABS # 0.06 K/uL (0-0.5); HEMOGLOBIN 13.7 g/dL (12.0-16.0); IG# 0.01 K/uL (0.00-0.02); LYMPH % 26.5 %; LYMPH ABS # 2.35 K/uL (1.2-3.4); MEAN CORPUSCULAR HEMOGLOBIN 32.6 pg (25-34); MEAN CORPUSCULAR HGB CONC 32.6 g/dl (32-36); MONO % 6.2 %; MONO ABS # 0.55 K/uL (0.11-0.59); NEUT % 66.4 %; NEUT ABS # 5.88 K/uL (1.4-6.5); PLATELET COUNT 292 K/uL (130-400); RED CELL DISTRIBUTION WIDTH CV 14.7 % (11.5-14.5); RED CELL DISTRIBUTION WIDTH SD 53.5 fL (36.4-46.3); WHITE BLOOD COUNT 8.86 K/uL (4.8-10.8)
[2017-10-05 12:22] LABS: INR 0.9 (0.9-1.1); PTT PATIENT 24.8 SECONDS (21.0-31.0)
[2017-10-05 12:28] LABS: BLOOD UREA NITROGEN 14 mg/dl (7-18); CALCIUM 8.7 mg/dl (8.5-10.1); CARBON DIOXIDE 31 mmol/L (21-32); CREATININE 0.68 mg/dl (0.60-1.20); GLUCOSE 108 mg/dl (70-99); SODIUM 138 mmol/L (136-145)
== END | disposition home or self-care (01) ==
LOC: C.RAD 10:50
PROVIDERS: ATTEND Neurological Surgery
DX: S22.059A Unspecified fracture of T5-T6 vertebra, initial encounter for closed fracture (principal); X58.XXXA Exposure to other specified factors, initial encounter

== ENCOUNTER 2020-04-01 06:10 | Inpatient (IN) ==
--- NOTE | 2020-03-16 11:16 | PAT Medication Instructions ---
Medication Instructions Date of Service March 16, 2020 Home Medications Medication Instructions Recorded Oxygen Home #1 ea 12/17/18 denosumab 60 mg/mL subcutaneous 60 mg SQ Q6MO #1 ml 12/31/18 syringe simvastatin 10 mg tablet 10 mg PO QPM #90 tab 05/13/19 albuterol sulfate 90 mcg/actuation 2 puff INH Q6H PRN #3 ea 12/26/19 aerosol inhaler meclizine 25 mg tablet 25 mg PO TID PRN #20 tab 03/09/20 ondansetron HCl 4 mg tablet 4 mg PO Q8H PRN #20 tab 03/09/20 acetaminophen 500 mg tablet 1,000 mg PO Q6H PRN aspirin 81 mg tablet,delayed release 81 mg PO PM calcium carbonate 500 mg-vitamin D3 200 unit-vitamin K2 90 mcg tablet 1 tab PO PM cholecalciferol (vitamin D3) 25 mcg (1,000 unit) capsule 1,000 units PO PM docusate sodium 100 mg capsule 100 mg PO PM ibuprofen 200 mg tablet 400 - 600 mg PO QID PRN vitamins A,C,W-pdkt-xuhljz 7,160 unit-113 mg-100 unit tablet 1 tab PO BID denosumab 60 mg/mL subcutaneous syringe 60 mg SQ Q6MO simvastatin 10 mg tablet 10 mg PO QPM albuterol sulfate 90 mcg/actuation aerosol inhaler 2 puff INH Q6H PRN [id number]-wjwtujjsx-izaafnlv [Trelegy Ellipta] 1 inh INH QAM meclizine 25 mg tablet 25 mg PO TID PRN ondansetron HCl 4 mg tablet 4 mg PO Q8H PRN Continue as directed denosumab 60 mg/mL subcutaneous syringe 60 mg SQ Q6MO ASK your surgeon for instructions ibuprofen 200 mg tablet 400 - 600 mg PO QID PRN STOP taking 2 weeks before surgery If surgery is within 2 weeks, stop taking as soon as possible. vitamins A,C,U-gmyh-urfnav 7,160 unit-113 mg-100 unit tablet 1 tab PO BID Take morning of surgery With a small sip of water, OTHERWISE NOTHING TO EAT OR DRINK AFTER MIDNIGHT: acetaminophen 500 mg tablet 1,000 mg PO Q6H PRN (if needed, may be taken up to four hours before surgery) albuterol sulfate 90 mcg/actuation aerosol inhaler 2 puff INH Q6H PRN (if needed, and bring with you to the hospital) [id number]-bkpwhlhn [Trelegy Ellipta] 1 inh INH QAM meclizine 25 mg tablet 25 mg PO TID PRN (if needed) ondansetron HCl 4 mg tablet 4 mg PO Q8H PRN (if needed) Take evening before surgery acetaminophen 500 mg tablet 1,000 mg PO Q6H PRN (if needed) aspirin 81 mg tablet,delayed release 81 mg PO PM (unless otherwise instructed by surgeon) calcium carbonate 500 mg-vitamin D3 200 unit-vitamin K2 90 mcg tablet 1 tab PO PM cholecalciferol (vitamin D3) 25 mcg (1,000 unit) capsule 1,000 units PO PM docusate sodium 100 mg capsule 100 mg PO PM simvastatin 10 mg tablet 10 mg PO QPM albuterol sulfate 90 mcg/actuation aerosol inhaler 2 puff INH Q6H PRN (if needed) meclizine 25 mg tablet 25 mg PO TID PRN (if needed) ondansetron HCl 4 mg tablet 4 mg PO Q8H PRN (if needed) Other Notes If you have any questions please call us at [phone] or [phone] or [phone] or [phone]
--- NOTE | 2020-03-17 12:50 | Anesthesiology Consultation ---
Date of Service March 17, 2020 Assessment & Plan (1) Encounter for pre-operative examination: Per assessment on 03/17: Travel screen negative. No known COVID-19 positive contacts or current COVID-19 related symptoms. Surgeon arranging preop COVID testing (scheduled 2/3 at surgeon's office). Awaiting results. Chart Review Chart Review: Acceptable Risk for Surgery (pending surgeon-ordered PCP clearance) and Patient seen in Pre Admission Testing Teaching & Discussion Pre-Anesthesia Teaching/Discussion Notes: Instructed NPO after midnight before surgery,except medications with 15 cc of water. Medication instructions provided according to the PAT guidelines. History Surgery Operation Date: 04/01/20 07:45 Proposed Procedures p L4-S1 Decompression Fusion, Spinal Cord Monitoring - Naveen Smith, Height/Weight Height: 5 ft 5.5 in Weight: 44.4 kg Allergies Allergy/AdvReac Type Severity Reaction Status Date / Time capsaicin Allergy Severe Hives Verified 03/17/20 12:43 diclofenac Allergy Severe Hives Verified 03/17/20 12:43 Diclopak Allergy Severe HIVES Unverified 11/18/16 06:48 alendronate sodium AdvReac Unknown Developed Verified 03/17/20 12:43 esophageal ulcer risedronate sodium AdvReac Unknown Constipatio Verified 03/17/20 12:43 n varenicline AdvReac Unknown "Mean" Verified 03/17/20 12:43 Medications Home Medications Medication Instructions Recorded Confirmed Last Taken acetaminophen 500 mg tablet 1,000 mg PO Q6H PRN tab 02/15/18 03/09/20 04/14/19 aspirin 81 mg tablet,delayed 81 mg PO PM 02/15/18 03/09/20 04/14/19 release calcium carbonate 500 mg-vitamin 1 tab PO PM tab 02/15/18 03/09/20 04/15/19 20:00 D3 200 unit-vitamin K2 90 mcg tablet cholecalciferol (vitamin D3) 25 1,000 units PO PM 02/15/18 03/09/20 04/08/19 20:00 mcg (1,000 unit) capsule docusate sodium 100 mg capsule 100 mg PO PM 02/15/18 03/09/20 04/14/19 ibuprofen 200 mg tablet 400 - 600 mg PO QID PRN tab 02/15/18 03/09/20 04/14/19 vitamins A,C,E-jgqi-bzscks 7,160 1 tab PO BID tab 02/15/18 03/09/20 04/14/19 unit-113 mg-100 unit tablet Oxygen Home #1 ea 12/17/18 03/09/20 Unknown denosumab 60 mg/mL subcutaneous 60 mg SQ Q6MO #1 ml 12/31/18 03/09/20 Unknown syringe simvastatin 10 mg tablet 10 mg PO QPM #90 tab 05/13/19 03/09/20 Unknown albuterol sulfate 90 mcg/actuation 2 puff INH Q6H PRN #3 ea 12/26/19 03/09/20 Unknown aerosol inhaler [id number]-vbadeniyj-eslcgfmd 1 inh INH QAM 02/20/20 03/09/20 Unknown [Trelegy Ellipta] meclizine 25 mg tablet 25 mg PO TID PRN #20 tab 03/09/20 03/09/20 Unknown ondansetron HCl 4 mg tablet 4 mg PO Q8H PRN #20 tab 03/09/20 03/09/20 Unknown Past Medical History Medical History Chronic low back pain Chronic neck pain COPD (chronic obstructive pulmonary disease) Degenerative disc disease, cervical History of anal cancer History of esophageal ulcer History of pneumothorax Hyperlipidemia Monoclonal gammopathy of undetermined significance On home oxygen therapy Osteoporosis Sacroiliac joint pain Spinal stenosis Vertigo Exercise / Class Metabolic Activity III < 4 Walking/Shop/Light housework (uses walker PRN) Past Family History Family History Father Colon cancer Mother Esophageal cancer Family/Other Rectal cancer Aunt Breast cancer Brother Diabetes Hyperlipidemia Hypertension Other No family history of adverse response to anesthesia Denies family history of Ovarian cancer Prostate cancer Past Surgical History Surgical History H/O breast reconstruction H/O kyphoplasty History of History of cataract surgery History of chest tube placement History of colonoscopy History of elbow surgery History of esophagogastroduodenoscopy (EGD) History of lumbar surgery History of spinal surgery History of thumb surgery History of tooth extraction History of total abdominal hysterectomy and bilateral salpingo-oophorectomy Past Anesthesia History No Family Hx of Anesthesia Complications and Other (post-op constipation) History of PONV History of PONV (+ post-op nausea) and Hx of Motion Sickness Social History Smoking Status: Former smoker tobacco type: cigarettes Smoking cigarettes per day: hx 1/2 PPD, tobacco use x 50 years, Quit 02/2020 Do You Dip or Chew Tobacco: No Hx Alcohol Use: Yes alcohol intake frequency: holidays/special occasions only Hx Substance Use: No substance use type: does not use Review of Systems Patient denies chest pain, shortness of breath, dyspnea on exertion, joint pain, reflux, cough, wheezing, palpitations. Physical Exam Vital Signs VITALS BP 95/55 (per patient, BP typically in the low-normal range) P 72 TEMP 98.2 SP02 97%RA RESP 18 PHYSICAL Full neck and c-spine range of motion. Full TMJ range of motion. TMD 3 finger breaths Mallampati Score 2 Dentition: + upper/lower dentures with + implants to secure dentures Lungs: clear throughout to auscultation Cardiac: regular rate and rhythm, no murmurs noted Spine: kyphoscoliosis Carotid arteries: no bruits Extremities: no edema Testing Laboratory Results 03/17/20 13:11 03/17/20 13:11 PT 10.5 Seconds (9.0-12.0) 03/17/20 13:11 INR 1.0 (0.9-1.1) 03/17/20 13:11 APTT 28.0 Seconds (21.0-31.0) 03/17/20 13:11 Urine Color Yellow 03/17/20 Unknown Urine Appearance Clear (Clear) 03/17/20 Unknown Urine pH 7.5 (4.5-7.5) 03/17/20 Unknown Ur Specific [place] 1.011 (1.000-1.030) 03/17/20 Unknown Urine Protein Negative (Negative) 03/17/20 Unknown Urine Glucose (UA) Negative (Negative) 03/17/20 Unknown Urine Ketones Negative (Negative) 03/17/20 Unknown Urine Nitrite Negative (Negative) 03/17/20 Unknown Ur Leukocyte Esterase Negative (Negative) 03/17/20 Unknown Blood Type O Positive 03/17/20 13:11 Antibody Screen NEGATIVE 03/17/20 13:11 Electrocardiogram Date: 03/17/20 NSR at 62bpm. VIVIANE. Other Testing Chest CT: 12/16/19: IMPRESSION: Interval resolution of bilateral airspace opacities since CT of December 08, 2018. The central airways are patent. No suspicious pulmonary nodules. Severe emphysema. Normal caliber thoracic aorta. Carotid doppler: 06/02/15: Antegrade flow in bilateral vertebral arteries. No significant carotid stenosis based on flow criteria.
[2020-03-17 13:34] LABS: Basophils # (auto) 0.02 K/uL (0-0.2); Basophils % (auto) 0.3 %; Eosinophils # (auto) 0.13 K/uL (0-0.5); Eosinophils % (auto) 1.8 %; Hematocrit (blood only) 40.2 % (37-47); Hemoglobin 13.2 g/dL (12.0-16.0); Immature Granulocytes # (auto) 0.01 K/uL (0.00-0.02); Immature Granulocytes % (auto) 0.1 %; Lymphocytes # (auto) 2.56 K/uL (1.2-3.4); Lymphocytes % (auto) 35.1 %; Mean Corpuscular Hemoglobin 31.7 pg (25-34); Mean Corpuscular Hgb Conc 32.8 g/dL (32-36); Mean Corpuscular Volume 96.6 fL (80-100); Mean Platelet Volume 9.9 fL (7.4-10.4); Monocytes # (auto) 0.42 K/uL (0.11-0.59); Monocytes % (auto) 5.8 %; Neutrophils # (auto) 4.16 K/uL (1.4-6.5); Neutrophils % (auto) 56.9 %; Platelet Count 242 K/uL (130-400); RDW Standard Deviation 49.8 fL (36.4-46.3); Red Blood Count 4.16 M/uL (4.2-5.4)
[2020-03-17 13:36] LABS: Appearance Urine Clear (Clear); Bilirubin Urine Negative (Negative); Blood Urine Negative (Negative); Color Urine Yellow; Glucose Urine UA Negative (Negative); Ketones Urine Negative (Negative); Leukocyte Esterase Urine Negative (Negative); Nitrite Urine Negative (Negative); Protein Urine Negative (Negative); Specific Gravity Urine 1.011 (1.000-1.030); Urobilinogen Urine Negative (Negative); pH Urine 7.5 (4.5-7.5)
[2020-03-17 13:48] LABS: Prothrombin Time 10.5 Seconds (9.0-12.0)
[2020-03-17 14:39] LABS: BUN Creatinine Ratio 23.4 (10-20); Calcium 9.2 mg/dl (8.5-10.1); Creatinine Clr Calc Pharmacy 70.8 ml/min; Est GFR (African American) 114.3; Est GFR (Non-African American) 98.7; Potassium 4.3 mmol/L (3.5-5.1)
--- NOTE | 2020-03-17 16:24 | Electrocardiogram Report ---
Test Reason : Blood Pressure : / mmHG Vent. Rate : 062 BPM Atrial Rate : 062 BPM P-R Int : 138 ms QRS Dur : 070 ms QT Int : 402 ms P-R-T Axes : 084 075 076 degrees QTc Int : 408 ms Normal sinus rhythm Right atrial enlargement When compared with ECG of 01-SEP-2016 09:03, Premature atrial complexes are no longer Present Confirmed by Sky Rockwell ([id number]) on 03/17/2020 4:24:08 PM Referred By: Naveen Smith Confirmed By:Anam Rockwell
[~2020-04-01 06:10] MED LIST changes: -ACET-1256 PO; +ACETAMINOPHEN 500 MG TAB PO SCH; -ASPI81TA28 PO; -CALC600T9 PO; -CHOL2000 PO; +CeleBREX 200 MG CAP PO SCH; -DOCU-94 PO; +GABAPENTIN 600 MG DOSE PO SCH; -IBUP-1277 PO; +LR 15ML/HR IV SCH; -MULT-190 PO; -SIMV10TA2 PO; -SYMIN160 INH; -VNTHFA/IN INH; +ceFAZolin 1000MG 1,000 MG/7.5 ML SYR IV SCH
[2020-04-01] MEDS ORDERED: LIDOCAINE HCL 2% 2 ML VIAL/AMP(20MG/ML) INFIL ONE (06:23)
[2020-04-01] MEDS ORDERED: PROPOFOL IV EMULSION 10 MG/ML 20 ML VIAL IV ONE (06:23)
[2020-04-01] MEDS ORDERED: DEXAMETHASONE SOD INJ 4 MG/ML VIAL ONE ×2 (06:23→08:02)
[2020-04-01] MEDS ORDERED: MIDAZOLAM HCL 1 MG/ML 2ML VIAL ONE (06:23)
[2020-04-01] MEDS ORDERED: NEOSTIGMINE METHYLSULFATE 1 MG/ML 10ML VIAL ONE (06:23)
[2020-04-01] MEDS ORDERED: ROCURONIUM BROMIDE 10 MG/ML 5 ML VIAL IV ONE (06:23)
[2020-04-01] MEDS ORDERED: fentaNYL citrate 100 MCG/2 ML VIAL ONE ×2 (06:23→09:33)
[2020-04-01] MEDS ORDERED: GLYCOPYRROLATE 0.2 MG/ML VIAL ONE (06:23)
[2020-04-01] MEDS ORDERED: ONDANSETRON INJ 2 MG/ML 2 ML VIAL ONE (06:23)
[2020-04-01] MEDS ORDERED: BACITRACIN INJ 50,000 UNIT VIAL ONE (07:09)
[2020-04-01] MEDS ORDERED: BUPIVACAINE/EPINEPHRINE 0.5% MPF 1:200,000 30 ML VIAL ONE (07:09)
[2020-04-01] MEDS ORDERED: ATROPINE SULFATE 0.1 MG/ML 10ML SYR IV PRN (07:10)
[2020-04-01] MEDS ORDERED: fentaNYL citrate 100 MCG/2 ML VIAL IV PRN (07:10)
[2020-04-01] MEDS ORDERED: MEPERIDINE HCL 25 MG/ML CARP/VIAL IV PRN (07:10)
[2020-04-01] MEDS ORDERED: LABETALOL HCL IV 5 MG/ML 20ML IV PRN (07:10)
[2020-04-01] MEDS ORDERED: ONDANSETRON INJ 2 MG/ML 2 ML VIAL IV PRN ×2 (07:10→11:54)
[2020-04-01] MEDS ORDERED: HYDROmorphone INJ 1 MG/ML SYRINGE IV PRN ×2 (07:10→11:54)
[2020-04-01] MEDS ORDERED: ePHEDrine sulfate 50 MG/ML AMP IV PRN (07:10)
[2020-04-01] MEDS ORDERED: PHENYLEPHRINE 100MCG/ML 5ML SYR IV PRN (07:10)
[2020-04-01] MEDS ORDERED: SCOPOLAMINE 1.5 MG TDSY TD ONE (07:19)
--- NOTE | 2020-04-01 07:29 | History & Physical Bridge Note ---
Date of Service April 01, 2020 History & Physical Bridge Note I have examined the patient, reviewed the History & Physical and in the interval since the performance of the History & Physical I have noted the following changes of clinical significance: no changes noted
--- NOTE | 2020-04-01 07:30 | History & Physical Report ---
Date of Service April 01, 2020 Assessment & Plan (1) Neurogenic claudication due to lumbar spinal stenosis: Admission and Anticipated Discharge Date Admission Date: L4-S1 decompression fusion History of Present Illness Chief Complaint: Back and leg pain Primary Care Provider: Rodriguez Espino MD This is a 65-year-old presents with chronic persistent back and leg pain. After failing course of nonoperative care she is here for surgical invention. Allergies Allergy/AdvReac Type Severity Reaction Status Date / Time capsaicin Allergy Severe Hives Verified 04/01/20 06:56 diclofenac Allergy Severe Hives Verified 04/01/20 06:56 Diclopak Allergy Severe HIVES Unverified 11/18/16 06:48 alendronate sodium AdvReac Unknown Developed Verified 04/01/20 06:56 esophageal ulcer risedronate sodium AdvReac Unknown Constipatio Verified 04/01/20 06:56 n varenicline AdvReac Unknown "Mean" Verified 04/01/20 06:56 Home Medications Medication Instructions Recorded Confirmed Type acetaminophen 500 mg tablet 1,000 mg PO Q6H PRN tab 02/15/18 04/01/20 History aspirin 81 mg tablet,delayed 81 mg PO PM 02/15/18 04/01/20 History release calcium carbonate 500 mg-vitamin 1 tab PO PM tab 02/15/18 04/01/20 History D3 200 unit-vitamin K2 90 mcg tablet docusate sodium 100 mg capsule 100 mg PO PM 02/15/18 04/01/20 History ibuprofen 200 mg tablet 400 - 600 mg PO QID PRN tab 02/15/18 03/18/20 History Oxygen Home #1 ea 12/17/18 03/18/20 Rx denosumab 60 mg/mL subcutaneous 60 mg SQ Q6MO #1 ml 12/31/18 04/01/20 Rx syringe simvastatin 10 mg tablet 10 mg PO QPM #90 tab 05/13/19 04/01/20 Rx albuterol sulfate 90 mcg/actuation 2 puff INH Q6H PRN #3 ea 12/26/19 04/01/20 Rx aerosol inhaler cholecalciferol (vitamin D3) 25 5,000 unit PO PM cap 03/18/20 04/01/20 History mcg (1,000 unit) capsule fluticasone fur. 100 mcg-umeclid 1 inh INH QAM #60 ea 03/18/20 04/01/20 Rx 62.5 mcg-vilant 25 mcg inhalat.powder [id number]-klh-[id number] 5 mg-zeaxanth 2 cap PO BID cap 03/18/20 04/01/20 History 1 mg-bilberry 7.5 mg-herbal capsule Past Med/Surg History Medical History (Updated 04/01/20 @ 07:30 by Naveen Smith, ) Chronic low back pain Chronic neck pain COPD (chronic obstructive pulmonary disease) Degenerative disc disease, cervical History of anal cancer treated surgically > 2011 History of esophageal ulcer remote hx History of pneumothorax procedure complication > chest tube (remote hx) Hyperlipidemia Monoclonal gammopathy of undetermined significance follows with [facility] oncology (annual surveillance) On home oxygen therapy 2 LPM O2 QHS Osteoporosis Sacroiliac joint pain Spinal stenosis Vertigo Surgical History H/O breast reconstruction with implants H/O kyphoplasty L4 (2016) History of History of cataract surgery R/L History of chest tube placement History of colonoscopy Colonoscopy: 04/16/19: MAC sedation at [facility] History of elbow surgery R/L History of esophagogastroduodenoscopy (EGD) History of lumbar surgery x2 History of spinal surgery Thoracic spine surgery History of thumb surgery R/L History of tooth extraction History of total abdominal hysterectomy and bilateral salpingo-oophorectomy Family History Father Colon cancer Mother Esophageal cancer Family/Other Rectal cancer Aunt Breast cancer Brother Diabetes Hyperlipidemia Hypertension Other No family history of adverse response to anesthesia Denies family history of Ovarian cancer Prostate cancer Social History Second Hand Exposure: No; Do You Dip or Chew Tobacco: No; Tobacco Cessation Education Requested by Patient: No Hx Alcohol Use: No Hx Substance Use: No Preferred Language: Greenlandic Communication Ability: Effective Visual Impairment: Limited Hearing Ability: Normal Regulatory Compliance Coordinator Required: No Beliefs That Will Affect Care: None marital status: Current Living Situation: Spouse current occupational status: retired Other Information That Helps Us Care for You: No Feels Safe at Home: Yes Safety Concerns: Feels Safe At This Time Assistive Devices: Denture - Upper, Denture - Lower, Glasses and Walker Physical Exam Physical Exam: Patient is alert and oriented Heart regular in rhythm Lungs clear to auscultation Results & Data ([facility]) Vital Signs (Past 12 Hours) Vital Signs Temp Pulse Resp BP Pulse Ox 04/01/20 07:04 37.1 C 64 18 118/71 93
[2020-04-01] MEDS ORDERED: ALBUT/IPRATROP 3MG/0.5MG NEB 3 ML VIAL NEB STA (07:41)
[2020-04-01] MEDS ORDERED: ALBUT/IPRATROP 3MG/0.5MG NEB 3 ML VIAL ONE (07:45)
[2020-04-01] MEDS ORDERED: PHENYLEPHRINE 100MCG/ML 5ML SYR ONE (08:04)
[2020-04-01] MEDS ORDERED: FLOSEAL HEMOSTATIC MATRIX 10ML TOP ONE (09:34)
--- NOTE | 2020-04-01 10:07 | Fluoroscopy Report ---
INTRAOPERATIVE RADIOGRAPHS CLINICAL HISTORY: L4-S1 spinal fusion. Fluoroscopy time: 26 seconds. FINDINGS: 2 spot fluoroscopic views of the lumbar spine are presented. There are chronic compression deformities of L4 and L5 with evidence of previous vertebroplasty. There has been discectomy at L4-L5 and L5-S1 with laminectomy and posterior fusion from L4-S1. Interpedicular screws are present within the bodies of L4 and S1. The orthopedic hardware appears intact. There is grade 1 anterolisthesis at L4-L5. IMPRESSION: Intraoperative images from L4-S1 spinal fusion as above. Electronically signed by: Joby Gill M.D. 04/01/2020 10:06 AM
--- NOTE | 2020-04-01 10:07 | Operative Report ---
Post Operative Report Pre & Post Diagnosis Operation Date: 04/01/20 07:45 Pre-Op Diagnosis: Spondylolisthesis Lumbar Region Post-Op Diagnosis: Spondylolisthesis Lumbar Region I identified the patient and participated in the time-out.: Yes Procedure Operation Date: 04/01/20 07:45 Actual Procedures #1 lumbar decompression with bilateral medial facetectomies and foraminotomies L3-4, L4-5 and L5-S1 per #2 posterior spinal fusion L4-5 L5-S1. #3 placement posterior instrumentation L4-5 L5-S1. #4 interbody fusion L4-5 L5-S1. #5 placement peek cage 8 x 22 mm at L4-5 and 10 x 22 mm at L5-S1 peer #6 placement of locally harvested morselized autograft in the posterior gutters. #7 placement infuse collagen sponge, and master graft in the posterior lateral gutters and ostial amp interbody space. Surgeon Naveen Smith, Bobbin Painter None Estimated Blood Loss 100 Findings Consistent with Post-Op Diagnosis Specimens None Indications This is a 65-year-old female who presents with marked decline in status and is here for surgical intervention. Description of Procedure Patient was met with identified informed consent obtained. Patient was then taken to the operative suite underwent an patient placed in a prone position Janak table top Primo frame. All bony prominences well-padded eyes inspected to ensure no external pressure placed upon the bed this point the lumbar spine was prepped and draped in a sterile fashion. Sharp dissection with the assistance of Bovie cartilage form down to and exposing the lamina and transverse processes of L4-L5 and sacral ala bilaterally. From caudal cephalad fashion complete laminectomy of L5 L4 partial laminectomy of L3 was performed including bilateral medial facetectomies and foraminotomies addressing severe spinal stenosis as well as foraminal disease. Pedicle screws were then placed in L4 and S1 bilaterally and by way of a transforaminal portion left complete discectomy of L5-S1 was performed. Endplates were then curetted to subcortical bleeding bone and a 10 x 22 mm peek cage filled osteobone graft tapped in pos ition. Then proceeded L4-L5 and again by way of a transforaminal portion left complete discectomy was performed endplates curetted to subcortical bleeding bone and a 8 x 22 mm peek cage with osteobone graft tapped in position. Proper size rods were then placed locked into position bilaterally. The transverse processes of L4-L5 and sacral ala burred to subcortical bleeding bone. Infuse collagen sponge master graft look autograft was placed in the posterior gutters. 15 round JR drain inserted. The incision was then closed with 1 Vicryl the fascia 2-0 Vicryl subcutaneously and 4 Monocryl for final skin closure. Steri- Strip sterile dressings placed. Patient will continue PACU stable condition. Please note spinal cord monitoring was utilized at the procedure no changes noted. I attest to the content of the Intraoperative Record and any orders documented therein. Any exceptions are noted below.
--- NOTE | 2020-04-01 11:16 | Anesthesiology Progress Note ---
Date of Service April 01, 2020 Anesthesia Post Procedure Vital Signs Vital Signs: Temp Pulse Pulse Resp BP BP Pulse Ox 04/01/20 11:05 60 15 92/52 L 99 04/01/20 10:50 36.2 C L 78 16 111/59 L 99 04/01/20 10:40 66 14 113/60 99 04/01/20 10:30 68 12 105/62 99 04/01/20 10:20 36.2 C L 84 16 115/66 100 04/01/20 07:50 60 17 92 04/01/20 07:04 37.1 C 64 18 118/71 93 Pain Intensity Left Buttock: Pain Intensity: 2 Transfer of Care Handoff Completed per policy Notes Mental Status: alert / awake / arousable Patient Amnestic to Procedure: Yes Nausea / Vomiting: adequately controlled Pain: adequately controlled Airway Patency, RR, SpO2: stable & adequate BP & HR: stable & adequate Hydration State: stable & adequate Anesthetic Complications: no major complications apparent and Pt Satisfied with anesthetic care Notes: The patient is awake and comfortable. Her vital signs are stable.
[2020-04-01] MEDS ORDERED: PROMETHAZINE HCL 12.5 MG in SODIUM CHLORIDE 0.9% 50 ML IV PRN (11:54)
[2020-04-01] MEDS ORDERED: SOD PHOSPHATE/SOD BIPHOSPHATE ENEMA 132 ML BTL PR PRN (11:54)
[2020-04-01] MEDS ORDERED: LORazepam 0.5 MG/1 ML VIAL IV PRN (11:54)
[2020-04-01] MEDS ORDERED: LORazepam 0.5 MG TAB PO PRN (11:54)
[2020-04-01] MEDS ORDERED: oxyCODONE HCL IR 5 MG TAB (IMMEDIATE RELEASE) PO PRN (11:54)
[2020-04-01] MEDS ORDERED: traMADol HCL 50 MG TABLET PO PRN (11:54)
[2020-04-01] MEDS ORDERED: DO NOT ADMINISTER PNEUMOCOCCAL VACCINE PRN (11:54)
[2020-04-01] MEDS ORDERED: ACETAMINOPHEN HOME PACK 500 MG TABLET PO PRN (11:54)
[2020-04-01] MEDS ORDERED: MAGNESIUM HYDROXIDE SUSP 30 ML UDC PO PRN (11:54)
[2020-04-01] MEDS ORDERED: hydrOXYzine HCl 25 MG TAB PO PRN (11:54)
[2020-04-01] MEDS ORDERED: ALBUTEROL HFA 8 GM INHALER INH PRN (11:54)
[2020-04-01] MEDS ORDERED: ONDANSETRON 4 MG OD TAB PO PRN (11:54)
[2020-04-01] MEDS ORDERED: HYDROmorphone INJ 0.5 MG/0.5 ML SYR IV PRN (11:54)
[2020-04-01] MEDS ORDERED: DO NOT ADMINISTER FLU VACCINE PRN (11:54)
[2020-04-01] MEDS ORDERED: METOCLOPRAMIDE HCL INJ 5 MG/ML 2 ML VIAL IV PRN (11:54)
[2020-04-01] MEDS ORDERED: ACETAMINOPHEN 1,000 MG/100 ML VIAL IV PRN (11:54)
[2020-04-01] MEDS ORDERED: NALOXONE HCL 0.4 MG/1 ML VIAL/CARP IV PRN (11:54)
[2020-04-01] MEDS ORDERED: ALUMINUM/MAGNESIUM SUSP 30 ML UDC PO PRN (11:54)
[2020-04-01] MEDS ORDERED: FAMOTIDINE 20 MG TAB PO PRN (11:54)
[2020-04-01] MEDS ORDERED: diphenhydrAMINE Capsule 25 MG CAP PO PRN (11:54)
[2020-04-01] MEDS: SCOPOLAMINE 1.5 MG TDSY TD SCH (11:57)
[2020-04-01] MEDS: CHECK SCOPOLAMINE PATCH PLACEMENT SCH ×2 (11:58→15:47)
[2020-04-01] MEDS: SODIUM CHLORIDE 0.9% 1000ML 1,000 ML IV SCH ×2 (12:33→22:54)
--- NOTE | 2020-04-01 12:37 | Hospitalist Consultation ---
Date of Consultation April 01, 2020 Assessment & Plan (1) Neurogenic claudication due to lumbar spinal stenosis: - Pain management, bowel regimen per the primary team - PT/OT consults - No chemical DVT ppx for now s/p lumbar decompression, resume ASA 81 mg daily tonight - Follow am CBC to monitor for acute blood loss- JR drain in place - Pt is able to move legs without difficulty and denies numbness/tingling. Sensation to light touch intact. (2) Hyperlipidemia: -Continue simvastatin 10 mg daily (3) COPD (chronic obstructive pulmonary disease): -Continue inhalers -Recently quit smoking 1 month ago, not using any nicotine replacement agents, encourage cessation (4) Osteoporosis: -Continue vitamin D and calcium supplementation (5) Monoclonal gammopathy of undetermined significance: -Noted, chronic (6) Degenerative disc disease, cervical: -Chronic neck pain, stable (7) Vertigo: -History of such, none currently DVT prophylaxis: - teds, scds CODE: Full code Dispo: From home, likely to remain in the hospital x 1-2 days. Thank you for involving us in the care of Mrs. Albarado. If you have any questions or concerns please do not hesitate to call. At this time medicine will sign off. Supervising Physician Co-Signing Physician Notes Patient was seen and examined independently I discussed the case with Brea Latham PAC I reviewed pertinent past medical social family history and also the plan of care and agree with the plan of care. Patient is doing well her pain is improved drain is in place, does have mgus, and history of copd lungs are without distress but poor breath sounds, will continue home will continue albuterol and fluticasone, eval for post op anemia Any exceptions will be noted below History of Present Illness Reason for Consultation: Medical management Requesting Physician: Dr. Smith Attending Physician: Naveen Smith, History of Present Illness This is a 65 yo F with PMHx of HLD,COPD, history of anal cancer, esophageal ulcer, spinal stenosis, cervical degenerative disc disease, monoclonal gammopathy, osteoporosis and vertigo who presented for lumbar decompression with bilateral medial facetectomies and foraminotomy L3-4, L4-5 and L5-S1, with cage placement by Dr. Smith on 04/01/2020. Pt is doing well since having surgery. She can move her legs and her feet without any difficulty, denies any numbness or tingling. She recently stopped smoking, 1 month ago after smoking for 50 years 1 pack/day so that she would be in better health for this surgical procedure. She lives at home with her who is able to help her around the house. Plans on doing outpatient PT/OT once out of the hospital. She tolerated a full liquid diet for lunch without any difficulty. Last bowel movement was 2 days ago and is typical for her, uses MiraLAX daily at home. Allergies Allergy/AdvReac Type Severity Reaction Status Date / Time capsaicin Allergy Severe Hives Verified 04/01/20 06:56 diclofenac Allergy Severe Hives Verified 04/01/20 06:56 Diclopak Allergy Severe HIVES Unverified 11/18/16 06:48 alendronate sodium AdvReac Unknown Developed Verified 04/01/20 06:56 esophageal ulcer risedronate sodium AdvReac Unknown Constipatio Verified 04/01/20 06:56 n varenicline AdvReac Unknown "Mean" Verified 04/01/20 06:56 Home Medications Medication Instructions Recorded Confirmed Type acetaminophen 500 mg tablet 1,000 mg PO Q6H PRN tab 02/15/18 04/01/20 History aspirin 81 mg tablet,delayed 81 mg PO PM 02/15/18 04/01/20 History release calcium carbonate 500 mg-vitamin 1 tab PO PM tab 02/15/18 04/01/20 History D3 200 unit-vitamin K2 90 mcg tablet docusate sodium 100 mg capsule 100 mg PO PM 02/15/18 04/01/20 History ibuprofen 200 mg tablet 400 - 600 mg PO QID PRN tab 02/15/18 03/18/20 History Oxygen Home #1 ea 12/17/18 03/18/20 Rx denosumab 60 mg/mL subcutaneous 60 mg SQ Q6MO #1 ml 12/31/18 04/01/20 Rx syringe simvastatin 10 mg tablet 10 mg PO QPM #90 tab 05/13/19 04/01/20 Rx albuterol sulfate 90 mcg/actuation 2 puff INH Q6H PRN #3 ea 12/26/19 04/01/20 Rx aerosol inhaler cholecalciferol (vitamin D3) 25 5,000 unit PO PM cap 03/18/20 04/01/20 History mcg (1,000 unit) capsule fluticasone fur. 100 mcg-umeclid 1 inh INH QAM #60 ea 03/18/20 04/01/20 Rx 62.5 mcg-vilant 25 mcg inhalat.powder mcqbidoq-zrq-firmxd 5 mg-zeaxanth 2 cap PO BID cap 03/18/20 04/01/20 History 1 mg-bilberry 7.5 mg-herbal capsule Patient History Medical History (Updated 04/01/20 @ 07:30 by Naveen Smith DO) Chronic low back pain Chronic neck pain COPD (chronic obstructive pulmonary disease) Degenerative disc disease, cervical History of anal cancer treated surgically > 2011 History of esophageal ulcer remote hx History of pneumothorax procedure complication > chest tube (remote hx) Hyperlipidemia Monoclonal gammopathy of undetermined significance follows with [facility] oncology (annual surveillance) On home oxygen therapy 2 LPM O2 QHS Osteoporosis Sacroiliac joint pain Spinal stenosis Vertigo Surgical History H/O breast reconstruction with implants H/O kyphoplasty L4 (2017) History of History of cataract surgery R/L History of chest tube placement History of colonoscopy Colonoscopy: 04/16/19: MAC sedation at [facility] History of elbow surgery R/L History of esophagogastroduodenoscopy (EGD) History of lumbar surgery x2 History of spinal surgery Thoracic spine surgery History of thumb surgery R/L History of tooth extraction History of total abdominal hysterectomy and bilateral salpingo-oophorectomy Family History Father Colon cancer Mother Esophageal cancer Family/Other Rectal cancer Aunt Breast cancer Brother Diabetes Hyperlipidemia Hypertension Other No family history of adverse response to anesthesia Denies family history of Ovarian cancer Prostate cancer Social History Second Hand Exposure: No; Hx Alcohol Use: No Hx Substance Use: No Preferred Language: Vietnamese Communication Ability: Effective Visual Impairment: Limited Hearing Ability: Normal Maintenance Assistant Required: No Beliefs That Will Affect Care: None marital status: Current Living Situation: Spouse current occupational status: retired Feels Safe at Home: Yes Assistive Devices: Denture - Upper, Denture - Lower, Glasses and Walker Review of Systems Review of Systems: Constitutional: No fever, sweats or chills Eyes: No diplopia, no worsening or blurred vision ENT: normal hearing, no trouble swallowing Respiratory: No cough, sputum, dyspnea at rest or on exertion - wears 2 L O2 at HS. Cardiovascular: No chest pain, tightness or palpitations Abdomen: No pain, nausea, vomiting, diarrhea or constipation Back: No pain : singh cath in place Musculoskeletal: No joint pain, calf pain, swelling Neurologic: No weakness, numbness/tingling, or balance problems Psychiatric: No anxiety or depression Skin: No rash or itch Physical Exam Physical Exam: General: awake, alert, no apparent distress, + thin Head: Normocephalic, atraumatic ENT: PERRL, EOMI, no pharyngeal exudate, mucous membranes moist Chest: Clear to auscultation, + coarse cough without sputum production, barrel chested, on 2 L via NC, no adventitious breath sounds Cardiac: Regular rate and rhythm, no murmur, no JVD, normal peripheral pulses, good capillary refill Abdominal: NABS x 4 quadrants, soft, nondistended, nontender to palpation, no rebound or guarding Back: Dressing c/d/i, JR drain in place : singh cath in place draining clear yellow urine. Extremities: Normal inspection, no peripheral edema or erythema, calfs nontender to palpation Psych: Normal mood and affect Neuro: AAO x 3, strength intact bilaterally and rated 5/5, no motor deficits, speech is clear, no peripheral sensory deficits Results & Data Results & Data ([facility]) Vital Signs (Past 12 Hours) Vital Signs Temp Pulse Pulse Pulse Resp BP BP 04/01/20 12:08 36.4 C L 54 L 16 82/46 L 04/01/20 11:27 36.4 C L 62 16 94/49 L 04/01/20 11:05 60 15 92/52 L 04/01/20 10:50 36.2 C L 78 16 111/59 L 04/01/20 10:40 66 14 113/60 04/01/20 10:30 68 12 105/62 04/01/20 10:20 36.2 C L 84 16 115/66 04/01/20 07:50 60 17 04/01/20 07:04 37.1 C 64 18 118/71 Pulse Ox 04/01/20 12:08 96 04/01/20 11:27 94 04/01/20 11:05 99 04/01/20 10:50 99 04/01/20 10:40 99 04/01/20 10:30 99 04/01/20 10:20 100 04/01/20 07:50 92 04/01/20 07:04 93 PG Care Time/CCT Total # of Minutes Spent Total Time Spent with Patient: Total time spent is greater than 50% in coordination of care (as documented) at patient's floor/unit and/or counseling patient: Coding Level of Care Code 13805 Inpt Consult Level 3 Diagnoses Neurogenic claudication due to lumbar spinal stenosis M48.062 Hyperlipidemia E78.5 COPD (chronic obstructive pulmonary disease) J44.9 Osteoporosis M81.0 Monoclonal gammopathy of undetermined significance D47.2 Degenerative disc disease, cervical M50.30 Vertigo R42
[2020-04-01] MEDS: ceFAZolin 2000MG 2,000 MG/15 ML SYR IV SCH (15:47)
[2020-04-01] MEDS: SIMVASTATIN 10 MG TAB PO SCH (20:31)
[2020-04-01] MEDS: CALCIUM CARBONATE 1250MG TAB PO SCH (20:31)
[2020-04-01] MEDS: ASPIRIN 81 MG ECTAB PO SCH (20:31)
[2020-04-01] MEDS: DOCUSATE SODIUM/SENNA 50/8.6MG TAB PO SCH (20:31)
[2020-04-01] MEDS: CHOLECALCIFEROL 1,000 UNITS 25 MCG TAB PO SCH (20:31)
[2020-04-01] MEDS ORDERED: NON-FORMULARY MEDICATION (Mv-Mn-Lutein-Zeax-Bilber-Hb277 [Macular Health Formula] 5-1-7.5 PO SCH (21:00)
[2020-04-01] MEDS: ACETAMINOPHEN 500 MG TAB PO PRN (22:52)
[2020-04-02] MEDS: ceFAZolin 2000MG 2,000 MG/15 ML SYR IV SCH (01:15)
[2020-04-02] MEDS: CHECK SCOPOLAMINE PATCH PLACEMENT SCH ×3 (01:15→15:31)
[2020-04-02] MEDS: POLYETHYLENE (MIRALAX) 17 GM PACK PO SCH ×3 (05:02→17:30)
[2020-04-02 05:53] LABS: Basophils # (auto) 0.01 K/uL (0-0.2); Basophils % (auto) 0.1 %; Hematocrit (blood only) 29.7 % (37-47); Hemoglobin 9.6 g/dL (12.0-16.0); Immature Granulocytes # (auto) 0.03 K/uL (0.00-0.02); Immature Granulocytes % (auto) 0.2 %; Lymphocytes # (auto) 1.77 K/uL (1.2-3.4); Lymphocytes % (auto) 14.5 %; Mean Corpuscular Hemoglobin 31.1 pg (25-34); Mean Corpuscular Hgb Conc 32.3 g/dL (32-36); Mean Corpuscular Volume 96.1 fL (80-100); Mean Platelet Volume 9.2 fL (7.4-10.4); Monocytes # (auto) 0.67 K/uL (0.11-0.59); Monocytes % (auto) 5.5 %; Neutrophils # (auto) 9.76 K/uL (1.4-6.5); Neutrophils % (auto) 79.7 %; Platelet Count 191 K/uL (130-400); RDW Coefficient of Variation 13.9 % (11.5-14.5); RDW Standard Deviation 48.2 fL (36.4-46.3); Red Blood Count 3.09 M/uL (4.2-5.4); White Blood Count 12.24 K/uL (4.8-10.8)
[2020-04-02 06:24] LABS: BUN Creatinine Ratio 26.5 (10-20); Calcium 8.4 mg/dl (8.5-10.1); Creatinine Clr Calc Pharmacy 74.1 ml/min; Est GFR (African American) 114.9; Est GFR (Non-African American) 99.1; Potassium 4.1 mmol/L (3.5-5.1)
[2020-04-02] MEDS: FLUTICASONE FUROATE 100MCG 14 PUFFS/INHALER INH SCH (08:27)
[2020-04-02] MEDS: UMECLIDINIUM/VILANTEROL 62.5/25MCG 7 PUFFS/INHALER INH SCH (08:28)
[2020-04-02] MEDS: ACETAMINOPHEN 500 MG TAB PO PRN ×2 (08:39→16:12)
[2020-04-02] MEDS ORDERED: NON-FORMULARY MEDICATION (Fluticasone-Umeclidin-Vilanter [Trelegy Ellipta] 100-62.5-25 mcg INH SCH (09:00)
[2020-04-02] MEDS: SODIUM CHLORIDE 0.9% 1000ML 1,000 ML IV SCH (09:02)
--- NOTE | 2020-04-02 11:36 | Hospitalist Progress Note ---
Date of Service April 02, 2020 Assessment & Plan (1) Neurogenic claudication due to lumbar spinal stenosis: * POD#1 s/p #1 lumbar decompression with bilateral medial facetectomies and foraminotomies L3-4, L4-5 and L5-S1 per #2 posterior spinal fusion L4-5 L5-S1. #3 placement posterior instrumentation L4-5 L5-S1. #4 interbody fusion L4-5 L5-S1. #5 placement peek cage 8 x 22 mm at L4-5 and 10 x 22 mm at L5-S1 peer #6 placement of locally harvested morselized autograft in the posterior gutters. #7 placement infuse collagen sponge, and master graft in the posterior lateral gutters and ostial amp interbody space by Dr. Smith on 04/01 * EBL 100cc. * JR output 325cc thus far (285 + 40) * Pre-op h/h with repeat 9.6/29.7 -- acute blood loss anemia from surgery as well as dilutional from IVF * No further IVF * Repeat CBC in AM -- if stable ok for d/c from medicine standpoint (2) COPD (chronic obstructive pulmonary disease): * Continue home medications -- fluticasone and anoro inhaler while inpatient * Recently quit smoking 1 month ago, not using any nicotine replacement agents, encourage cessation * Documentation of 99-100% on 3-4L however patient is stable on room air currently without complaints of shortness of breath, however per nursing staff she did have drop to 60s resting in bed. Will encourage incentive spirometer and repeat CXR (preop without issues) given elevated WBC although could be from surgery * 91% on 2L currently * Also with sleep apnea and utilizes 2L HS outpatient -- will order for 2L HS for tonight (3) Hyperlipidemia: * Continue simvastatin 10 mg daily (4) Osteoporosis: * Continue vitamin D and calcium supplementation (5) Monoclonal gammopathy of undetermined significance: * Noted, chronic (6) Degenerative disc disease, cervical: * Chronic neck pain, stable (7) Vertigo: * History of such, none currently DVT prophylaxis: * teds, scds * chemo proph contraindicated in back surgery CODE: Full code Dispo: From home, likely to remain in the hospital an additional 1-2 days Thank you for involving us in the care of Mrs. Albarado. If you have any questions or concerns please do not hesitate to call. At this time medicine will monitor CXR and morning labs. If stable, medicine to sign off. Admission and Anticipated Discharge Date Admission Date: April 01, 2020 Subjective Patient evaluated this morning. Doing well. Pain controlled with tylenol alone. Mild back discomfort and right thigh numbness but left extremity discomfort resolved post-operatively. JR drain emptied this morning 30 minutes ago at same time as singh removal. Has not voided since but is drinking water and just finished a pitcher. Eating/drinking without difficulty. Back/leg symptoms controlled. Passing gas but no BM yet. Just received miralax this morning. Discussed oxygen use -- she utilizes 2L HS and has been off of oxygen all morning without issues. Discussed monitoring counts in the morning but that they should improve as JR output slows but that if stable may not be seen by hospitalist service tomorrow unless other issues arise. No fever, chills, chest pain shortness of breath, abdominal pain, nausea, vomiting, hematuria, melena or hematochezia. Questions/concerns addressed at this time. Anticipates discharge in next 1-2 days to home. Review of Systems Review of Systems: All systems reviewed & are unremarkable except as noted in HPI & below Physical Exam Physical Exam: General: awake, alert, no apparent distress, + thin, comfortable and resting in bed on the phone Head: Normocephalic, atraumatic ENT: PERRL, EOMI, no pharyngeal exudate, mucous membranes moist Chest: Clear to auscultation, no cough, barrel chest noted. on room air. no w/c appreciated Cardiac: Regular rate and rhythm, no murmur, no JVD, normal peripheral pulses, good capillary refill Abdominal: NABS x 4 quadrants, soft, nondistended, nontender to palpation, no rebound or guarding Back/MSK: Dressing c/d/i, JR drain in place with minimal bloody drainage (approximately 15-20cc). NVI, pulses palpable bilaterally : singh cath in place draining clear yellow urine. Extremities: Normal inspection, no peripheral edema or erythema, calfs nontender to palpation Psych: Normal mood and affect Neuro: AAO x 3, strength intact bilaterally and rated 5/5, no motor deficits, speech is clear, no peripheral sensory deficits Results & Data Results & Data ([facility]) Vital Signs (Past 12 Hours) Vital Signs Temp Pulse Resp BP BP Pulse Ox 04/02/20 07:36 37 C 61 16 113/69 99 04/02/20 03:24 36.6 C 62 14 99/62 L 100 Laboratory Results 04/02/20 04/02/20 04/01/20 Range/Units 05:30 05:30 06:36 WBC 12.24 H (4.8-10.8) K/uL RBC 3.09 L (4.2-5.4) M/uL Hgb 9.6 L (12.0-16.0) g/dL Hct 29.7 L (37-47) % MCV 96.1 (80-100) fL MCH 31.1 (25-34) pg MCHC 32.3 (32-36) g/dL RDW Std Deviation 48.2 H (36.4-46.3) fL RDW Coeff of Dipesh 13.9 (11.5-14.5) % Plt Count 191 (130-400) K/uL MPV 9.2 (7.4-10.4) fL Immature Gran % (Auto) 0.2 % Neut % (Auto) 79.7 % Lymph % (Auto) 14.5 % [place] % (Auto) 5.5 % Eos % (Auto) 0.0 % Baso % (Auto) 0.1 % Neut # (Auto) 9.76 H (1.4-6.5) K/uL Lymph # (Auto) 1.77 (1.2-3.4) K/uL [place] # (Auto) 0.67 H (0.11-0.59) K/uL Eos # (Auto) 0.00 (0-0.5) K/uL Baso # (Auto) 0.01 (0-0.2) K/uL Immature Gran # (Auto) 0.03 H (0.00-0.02) K/uL Sodium 141 (136-145) mmol/L Potassium 4.1 (3.5-5.1) mmol/L Chloride 108 H (98-107) mmol/L Carbon Dioxide 32 (21-32) mmol/L Anion Gap 1.0 L (3-11) BUN 14 (7-18) mg/dl Creatinine 0.55 L (0.6-1.2) mg/dl Est Cr Clr Drug Dosing 74.1 ml/min Est GFR ( Amer) 114.9 Est GFR (Non-Af Amer) 99.1 BUN/Creatinine Ratio 26.5 H (10-20) Glucose 84 (70-99) mg/dl Calcium 8.4 L (8.5-10.1) mg/dl Hepatitis C Ab Screen Neg (Neg) PG Care Time/CCT Total # of Minutes Spent Total Time Spent with Patient: Total time spent is greater than 50% in coordination of care (as documented) at patient's floor/unit and/or counseling patient: Coding Level of Care Code 76746 Subseq Hosp Care Lvl 3 Diagnoses Neurogenic claudication due to lumbar spinal stenosis M48.062 COPD (chronic obstructive pulmonary disease) J44.9 Hyperlipidemia E78.5 Osteoporosis M81.0 Monoclonal gammopathy of undetermined significance D47.2 Degenerative disc disease, cervical M50.30 Vertigo R42
--- NOTE | 2020-04-02 12:40 | XRay Report ---
XR chest 1V portable CLINICAL HISTORY: hypoxia, elevated WBC COMPARISON STUDY: Chest CT December 16, 2019. FINDINGS: Patient is rotated. No pneumothorax is present. There is a trace right pleural effusion. Mi ld bibasilar opacities are present. There is mild interstitial thickening. Underlying emphysema is pr esent. Cardiac size is normal. IMPRESSION: 1. Interstitial thickening and bibasilar opacities. The findings may reflect an infectious process or pulmonary edema. Radiographic follow up is recommended. 2. Trace right pleural effusion. 3. Emphysema. ACT 112: Negative or not required by law. Electronically signed by: Leandro Schuler M.D. 04/02/2020 12:39 PM
--- NOTE | 2020-04-02 13:30 | Orthopedic Progress Note ---
Date of Service April 02, 2020 Assessment & Plan (1) Neurogenic claudication due to lumbar spinal stenosis: Admission and Anticipated Discharge Date Admission Date: April 01, 2020 This time we will continue physical therapy monitor JR operatively discharge home next few days. Subjective Back pain controlled leg symptoms improved Physical Exam Physical Exam: Patient is constricted resting very comfortable. Results & Data ([facility]) Vital Signs (Past 12 Hours) Vital Signs Temp Pulse Resp BP BP Pulse Ox 04/02/20 11:30 36.8 C 81 16 96/51 L 91 04/02/20 07:36 37 C 61 16 113/69 99 04/02/20 03:24 36.6 C 62 14 99/62 L 100
[2020-04-02] MEDS ORDERED: FUROSEMIDE 10 MG in SYRINGE 0 ML IV ONE (14:50)
[2020-04-02] MEDS ORDERED: bisacodyL 5 MG TABEC PO ONE (19:53)
[2020-04-02] MEDS: ASPIRIN 81 MG ECTAB PO SCH (21:04)
[2020-04-02] MEDS: CALCIUM CARBONATE 1250MG TAB PO SCH (21:04)
[2020-04-02] MEDS: SIMVASTATIN 10 MG TAB PO SCH (21:04)
[2020-04-02] MEDS: CHOLECALCIFEROL 1,000 UNITS 25 MCG TAB PO SCH (21:04)
[2020-04-02] MEDS: DOCUSATE SODIUM/SENNA 50/8.6MG TAB PO SCH (21:06)
[2020-04-03] MEDS: POLYETHYLENE (MIRALAX) 17 GM PACK PO SCH ×4 (00:12→17:08)
[2020-04-03] MEDS: CHECK SCOPOLAMINE PATCH PLACEMENT SCH ×3 (00:12→15:28)
--- NOTE | 2020-04-03 08:22 | XRay Report ---
XR chest 1V portable CLINICAL HISTORY: f/u pulm edema/opacities, hypoxia COMPARISON STUDY: Chest radiograph April 02, 2020. FINDINGS: Patient is rotated. Underlying emphysema is present. There is no pneumothorax or pleural ef fusion. Multilevel kyphoplasty is noted. Interstitial thickening and bibasilar opacities have improve d. IMPRESSION: 1. Interval improvement in interstitial thickening and bibasilar opacities. 2. Emphysema. ACT 112: Negative or not required by law. Electronically signed by: Leandro Schuler M.D. 04/03/2020 8:21 AM
[2020-04-03] MEDS: DEXAMETHASONE SOD PHOSPHATE 6 MG in SYRINGE 0 ML IV SCH (08:35)
[2020-04-03] MEDS: FLUTICASONE FUROATE 100MCG 14 PUFFS/INHALER INH SCH (08:36)
[2020-04-03] MEDS: UMECLIDINIUM/VILANTEROL 62.5/25MCG 7 PUFFS/INHALER INH SCH (08:36)
[2020-04-03 10:00] LABS: Basophils # (auto) 0.01 K/uL (0-0.2); Basophils % (auto) 0.1 %; Eosinophils # (auto) 0.12 K/uL (0-0.5); Eosinophils % (auto) 1.2 %; Hematocrit (blood only) 31.3 % (37-47); Hemoglobin 10.2 g/dL (12.0-16.0); Immature Granulocytes # (auto) 0.02 K/uL (0.00-0.02); Immature Granulocytes % (auto) 0.2 %; Lymphocytes # (auto) 1.54 K/uL (1.2-3.4); Lymphocytes % (auto) 15.2 %; Mean Corpuscular Hemoglobin 31.6 pg (25-34); Mean Corpuscular Hgb Conc 32.6 g/dL (32-36); Mean Corpuscular Volume 96.9 fL (80-100); Mean Platelet Volume 10.1 fL (7.4-10.4); Monocytes # (auto) 0.53 K/uL (0.11-0.59); Monocytes % (auto) 5.2 %; Neutrophils # (auto) 7.93 K/uL (1.4-6.5); Neutrophils % (auto) 78.1 %; Platelet Count 194 K/uL (130-400); RDW Coefficient of Variation 13.9 % (11.5-14.5); RDW Standard Deviation 49.8 fL (36.4-46.3); Red Blood Count 3.23 M/uL (4.2-5.4); White Blood Count 10.15 K/uL (4.8-10.8)
[2020-04-03] MEDS ORDERED: bisacodyL 10 MG SUPP PR PRN (10:08)
[2020-04-03 10:54] LABS: BUN Creatinine Ratio 24.1 (10-20); Calcium 8.8 mg/dl (8.5-10.1); Est GFR (African American) 99.2; Est GFR (Non-African American) 85.6; Potassium 3.6 mmol/L (3.5-5.1)
[2020-04-03] MEDS ORDERED: FUROSEMIDE 10 MG in SYRINGE 0 ML IV ONE (10:57)
--- NOTE | 2020-04-03 11:24 | Hospitalist Progress Note ---
Date of Service April 03, 2020 Assessment & Plan (1) Neurogenic claudication due to lumbar spinal stenosis: * POD#2 s/p #1 lumbar decompression with bilateral medial facetectomies and foraminotomies L3-4, L4-5 and L5-S1 per #2 posterior spinal fusion L4-5 L5-S1. #3 placement posterior instrumentation L4-5 L5-S1. #4 interbody fusion L4-5 L5-S1. #5 placement peek cage 8 x 22 mm at L4-5 and 10 x 22 mm at L5-S1 peer #6 placement of locally harvested morselized autograft in the posterior gutters. #7 placement infuse collagen sponge, and master graft in the posterior lateral gutters and ostial amp interbody space by Dr. Smith on 04/01 * EBL 100cc. * Pre-op h/h with repeat 9.6/.7 -- acute blood loss anemia from surgery as well as dilutional from IVF * Repeat improved * Continues on dexamethasone IV which could be contributing to increased congestion/edema * No further IVF Given 10mg IV lasix on 04/02 for hypoxia down to 60s but denied shortness of breath. CXR this AM with improvement of interstitial thickening and bibasilar opacities Encouraged continued use of incentive spirometer Additional 10mg IV lasix to be given this AM. Cr stable Continue to monitor in AM (2) COPD (chronic obstructive pulmonary disease): * Continue home medications -- fluticasone and anoro inhaler while inpatient * Recently quit smoking 1 month ago, not using any nicotine replacement agents, encourage cessation * Documentation of 99-100% on 3-4L however patient is stable on room air currently without complaints of shortness of breath, however per nursing staff she did have drop to 60s resting in bed. Will encourage incentive spirometer and repeat CXR (preop without issues) given elevated WBC although could be from surgery * 97% on 2L currently -- discussed with nursing and again dropped to 70s with therapy this morning * Also with sleep apnea and utilizes 2L HS outpatient -- will order for 2L HS for tonight * May need 2step at d/c and f/u with pulm if persists * No cough/sputum production able to be produced (3) Hyperlipidemia: * Continue simvastatin 10 mg daily (4) Osteoporosis: * Continue vitamin D and calcium supplementation (5) Monoclonal gammopathy of undetermined significance: * Noted, chronic (6) Degenerative disc disease, cervical: * Chronic neck pain, stable (7) Vertigo: * History of such, none currently DVT prophylaxis: * teds, scds * chemo proph contraindicated in back surgery CODE: Full code Dispo: From home, hopeful for discharge Monday by Dr. Smith Thank you for involving us in the care of Mrs. Albarado. Medicine will follow AM CXR and labs. If stable and no further desaturations, ok for discharge May need 2 step prior to d/c if they occur Admission and Anticipated Discharge Date Admission Date: April 01, 2020 Subjective Patient evaluated this morning. Doing well. Up walking with minimal discomfort. Only taking tylenol for pain. no fevers, chills, chest pain, shortness of breath reported. increased urination from lasix yesterday and discussed additional dose today as O2 sats dropped to 70s with therapy. Has O2 at home for night but also has a portable tank per her account that she is able to move around. Initially placed on O2 HS for headaches and nausea in AM by her doctor and that had resolved. Discussed 2 step prior to discharge and repeating CXR in AM. Questions/concerns addressed at this time. Review of Systems Review of Systems: All systems reviewed & are unremarkable except as noted in HPI & below Physical Exam Physical Exam: General: awake, alert, no apparent distress, + thin, comfo rtable and resting up at side of bed Head: Normocephalic, atraumatic ENT: PERRL, EOMI, no pharyngeal exudate, mucous membranes moist Chest: Clear to auscultation, no cough, barrel chest noted. on room air. no w/c appreciated DIMINISHED THROUGHOUT. On 2L via NC Cardiac: Regular rate and rhythm, no murmur, no JVD, normal peripheral pulses, good capillary refill Abdominal: NABS x 4 quadrants, soft, nondistended, nontender to palpation, no rebound or guarding Back/MSK: Dressing c/d/i, JR drain in place with minimal bloody drainage . NVI, pulses palpable bilaterally : singh cath in place draining clear yellow urine. Extremities: Normal inspection, no peripheral edema or erythema, calfs nontender to palpation Psych: Normal mood and affect Neuro: AAO x 3, strength intact bilaterally and rated 5/5, no motor deficits, speech is clear, no peripheral sensory deficits Results & Data Results & Data ([facility]) Vital Signs (Past 12 Hours) Vital Signs Temp Pulse Resp BP Pulse Ox 04/03/20 07:17 36.9 C 60 16 122/70 97 Laboratory Results 04/03/20 04/03/20 Range/Units 09:15 09:15 WBC 10.15 (4.8-10.8) K/uL RBC 3.23 L (4.2-5.4) M/uL Hgb 10.2 L (12.0-16.0) g/dL Hct 31.3 L (37-47) % MCV 96.9 (80-100) fL MCH 31.6 (25-34) pg MCHC 32.6 (32-36) g/dL RDW Std Deviation 49.8 H (36.4-46.3) fL RDW Coeff of Dipesh 13.9 (11.5-14.5) % Plt Count 194 (130-400) K/uL MPV 10.1 (7.4-10.4) fL Immature Gran % (Auto) 0.2 % Neut % (Auto) 78.1 % Lymph % (Auto) 15.2 % [place] % (Auto) 5.2 % Eos % (Auto) 1.2 % Baso % (Auto) 0.1 % Neut # (Auto) 7.93 H (1.4-6.5) K/uL Lymph # (Auto) 1.54 (1.2-3.4) K/uL [place] # (Auto) 0.53 (0.11-0.59) K/uL Eos # (Auto) 0.12 (0-0.5) K/uL Baso # (Auto) 0.01 (0-0.2) K/uL Immature Gran # (Auto) 0.02 (0.00-0.02) K/uL Sodium 138 (136-145) mmol/L Potassium 3.6 (3.5-5.1) mmol/L Chloride 102 (98-107) mmol/L Carbon Dioxide 31 (21-32) mmol/L Anion Gap 5.0 (3-11) BUN 18 (7-18) mg/dl Creatinine 0.74 (0.6-1.2) mg/dl Est Cr Clr Drug Dosing 55.0 ml/min Est GFR ( Amer) 99.2 Est GFR (Non-Af Amer) 85.6 BUN/Creatinine Ratio 24.1 H (10-20) Glucose 179 H (70-99) mg/dl Calcium 8.8 (8.5-10.1) mg/dl Diagnostic Findings IMPRESSION: 1. Interval improvement in interstitial thickening and bibasilar opacities. 2. Emphysema. PG Care Time/CCT Total # of Minutes Spent Total Time Spent with Patient: Total time spent is greater than 50% in coordination of care (as documented) at patient's floor/unit and/or counseling patient: Coding Level of Care Code 63923 Subseq Hosp Care Lvl 2 Diagnoses Neurogenic claudication due to lumbar spinal stenosis M48.062 COPD (chronic obstructive pulmonary disease) J44.9 Hyperlipidemia E78.5 Osteoporosis M81.0 Monoclonal gammopathy of undetermined significance D47.2 Degenerative disc disease, cervical M50.30 Vertigo R42
--- NOTE | 2020-04-03 13:31 | Orthopedic Progress Note ---
Date of Service April 03, 2020 Assessment & Plan (1) Neurogenic claudication due to lumbar spinal stenosis: Admission and Anticipated Discharge Date Admission Date: April 01, 2020 This time we will continue physical therapy monitor JR operatively discharge home tomorrow. Subjective Back pain controlled leg symptoms improved Physical Exam Physical Exam: Patient is good strength testing appears comfortable. Results & Data ([facility]) Vital Signs (Past 12 Hours) Vital Signs Temp Pulse Resp BP Pulse Ox 04/03/20 07:17 36.9 C 60 16 122/70 97
[2020-04-03] MEDS ORDERED: MAGNESIUM CITRATE 296 ML/BTL PO STA (14:36)
[2020-04-03] MEDS: DOCUSATE SODIUM/SENNA 50/8.6MG TAB PO SCH (20:03)
[2020-04-03] MEDS: ASPIRIN 81 MG ECTAB PO SCH (20:03)
[2020-04-03] MEDS: CALCIUM CARBONATE 1250MG TAB PO SCH (20:03)
[2020-04-03] MEDS: SIMVASTATIN 10 MG TAB PO SCH (20:04)
[2020-04-03] MEDS: CHOLECALCIFEROL 1,000 UNITS 25 MCG TAB PO SCH (20:04)
[2020-04-04] MEDS: POLYETHYLENE (MIRALAX) 17 GM PACK PO SCH ×3 (00:23→11:10)
[2020-04-04] MEDS: CHECK SCOPOLAMINE PATCH PLACEMENT SCH ×2 (00:23→08:48)
[2020-04-04 07:45] LABS: BUN Creatinine Ratio 26.8 (10-20); Calcium 9.6 mg/dl (8.5-10.1); Creatinine Clr Calc Pharmacy 64.7 ml/min; Est GFR (African American) 109.9; Est GFR (Non-African American) 94.8; Potassium 4.2 mmol/L (3.5-5.1)
--- NOTE | 2020-04-04 08:22 | XRay Report ---
XR chest 1V portable CLINICAL HISTORY: Hypoxia COMPARISON STUDY: April 03, 2020 FINDINGS: There is radiographic evidence of pulmonary emphysema. There is no overt failure. There are no large pleural effusions. There is evidence of a prior mid thoracic vertebroplasty.[There is no fo sylvia pulmonary consolidation. There is a 1 cm nodule at the right lung base, possibly atelectatic or p ostinflammatory. This is unlikely to be neoplastic. This could be evaluated on subsequent films. IMPRESSION: 1. Pulmonary emphysema 2. 1 cm opacity at the right lung base, possibly related to a nipple shadow or atelectatic/postinflam matory density. ACT 112: Negative or not required by law. Electronically signed by: Riley Titus M.D. 04/04/2020 8:21 AM
[2020-04-04] MEDS: SCOPOLAMINE 1.5 MG TDSY TD SCH (08:47)
[2020-04-04] MEDS: DEXAMETHASONE SOD PHOSPHATE 6 MG in SYRINGE 0 ML IV SCH (08:48)
[2020-04-04] MEDS: FLUTICASONE FUROATE 100MCG 14 PUFFS/INHALER INH SCH (08:48)
[2020-04-04] MEDS: UMECLIDINIUM/VILANTEROL 62.5/25MCG 7 PUFFS/INHALER INH SCH (08:49)
--- NOTE | 2020-04-04 09:18 | Hospitalist Progress Note ---
Date of Service April 04, 2020 Assessment & Plan (1) Neurogenic claudication due to lumbar spinal stenosis: * POD#3 s/p #1 lumbar decompression with bilateral medial facetectomies and foraminotomies L3-4, L4-5 and L5-S1 per #2 posterior spinal fusion L4-5 L5-S1. #3 placement posterior instrumentation L4-5 L5-S1. #4 interbody fusion L4-5 L5-S1. #5 placement peek cage 8 x 22 mm at L4-5 and 10 x 22 mm at L5-S1 peer #6 placement of locally harvested morselized autograft in the posterior gutters. #7 placement infuse collagen sponge, and master graft in the posterior lateral gutters and ostial amp interbody space by Dr. Smith on 04/01 * EBL 100cc. * Pre-op h/h with repeat 9.6/.7 -- acute blood loss anemia from surgery as well as dilutional from IVF * Repeat improved * Continues on dexamethasone IV which could be contributing to increased congestion/edema * No further IVF Given 10mg IV lasix on 04/02 for hypoxia down to 60s but denied shortness of breath. CXR 04/03 with improvement of interstitial thickening and bibasilar opacities Encouraged continued use of incentive spirometer Additional 10mg IV lasix given 04/03. Cr stable CXR with emphysema, improvement. 1cm nodule reported for R lung base, however appears possible nipple shadow vs atelectic/post-inflammatory. WBC normalized, no fevers Would recommend f/u with pulm given her significant emphysema (seen Jan 2019 and was to have f/u in 6 months but does not appear she had that appointment and she states she has been following with Dr. Espino for management and no need to see pulm unless he is recommending) (2) COPD (chronic obstructive pulmonary disease): * Continue home medications -- fluticasone and anoro inhaler while inpatient * Recently quit smoking 1 month ago, not using any nicotine replacement agents, encourage cessation * Documentation of 99-100% on 3-4L however patient is stable on room air currently without complaints of shortness of breath, however per nursing staff she did have drop to 60s resting in bed. Will encourage incentive spirometer and repeat CXR (preop without issues) given elevated WBC although could be from surgery * 96% on room air currently * Also with sleep apnea and utilizes 2L HS outpatient -- continued * No cough/sputum production able to be produced * 2 step without need for O2 (3) Hyperlipidemia: * Continue simvastatin 10 mg daily (4) Osteoporosis: * Continue vitamin D and calcium supplementation (5) Monoclonal gammopathy of undetermined significance: * Noted, chronic (6) Degenerative disc disease, cervical: * Chronic neck pain, stable (7) Vertigo: * History of such, none currently DVT prophylaxis: * teds, scds * chemo proph contraindicated in back surgery CODE: Full code Dispo: From home, discharge planned for this afternoon Thank you for involving us in the care of Mrs. Albarado. Medicine signed off. Call with any questions/concerns. Admission and Anticipated Discharge Date Admission Date: April 01, 2020 Subjective Patient seen this morning. Doing great. Passing gas but no BM yet but she feels "it rumbling". Pain resolved. Walked halls this morning with therapy and respiratory therapy without drop in O2. Plans for discharge this afternoon once seen by Dr. Smith. Review of Systems Review of Systems: All systems reviewed & are unremarkable except as noted in HPI & below Physical Exam Physical Exam: General: awake, alert, no apparent distress, + thin, comfortable and resting up at side of bed Head: Normocephalic, atraumatic ENT: PERRL, EOMI, no pharyngeal exudate, mucous membranes moist Chest: Clear to auscultation, no cough, barrel chest noted. on room air. no w/c appreciated DIMINISHED THROUGHOUT. 96% on room air Cardiac: Regular rate and rhythm, no murmur, no JVD, normal peripheral pulses, good capillary refill Abdominal: NABS x 4 quadrants, soft, nondistended, nontender to palpation, no rebound or guarding Back/MSK: Dressing c/d/i, JR drain in place with minimal bloody drainage . NVI, pulses palpable bilaterally : singh cath in place draining clear yellow urine. Extremities: Normal inspection, no peripheral edema or erythema, calfs nontender to palpation Psych: Normal mood and affect Neuro: AAO x 3, strength intact bilaterally and rated 5/5, no motor deficits, speech is clear, no peripheral sensory deficits Results & Data Results & Data ([facility]) Vital Signs (Past 12 Hours) Vital Signs Temp Pulse Resp BP Pulse Ox 04/04/20 08:46 16 96 04/04/20 08:28 36.6 C 82 16 97/60 L 91 04/03/20 23:39 37.1 C 72 14 108/60 97 04/03/20 21:20 88 L Laboratory Results 04/04/20 04/03/20 04/03/20 Range/Units 06:30 09:15 09:15 WBC 10.15 (4.8-10.8) K/uL RBC 3.23 L (4.2-5.4) M/uL Hgb 10.2 L (12.0-16.0) g/dL Hct 31.3 L (37-47) % MCV 96.9 (80-100) fL MCH 31.6 (25-34) pg MCHC 32.6 (32-36) g/dL RDW Std Deviation 49.8 H (36.4-46.3) fL RDW Coeff of Dipesh 13.9 (11.5-14.5) % Plt Count 194 (130-400) K/uL MPV 10.1 (7.4-10.4) fL Immature Gran % (Auto) 0.2 % Neut % (Auto) 78.1 % Lymph % (Auto) 15.2 % [place] % (Auto) 5.2 % Eos % (Auto) 1.2 % Baso % (Auto) 0.1 % Neut # (Auto) 7.93 H (1.4-6.5) K/uL Lymph # (Auto) 1.54 (1.2-3.4) K/uL [place] # (Auto) 0.53 (0.11-0.59) K/uL Eos # (Auto) 0.12 (0-0.5) K/uL Baso # (Auto) 0.01 (0-0.2) K/uL Immature Gran # (Auto) 0.02 (0.00-0.02) K/uL Sodium 140 138 (136-145) mmol/L Potassium 4.2 D 3.6 (3.5-5.1) mmol/L Chloride 102 102 (98-107) mmol/L Carbon Dioxide 34 H 31 (21-32) mmol/L Anion Gap 3.0 5.0 (3-11) BUN 17 18 (7-18) mg/dl Creatinine 0.63 0.74 (0.6-1.2) mg/dl Est Cr Clr Drug Dosing 64.7 55.0 ml/min Est GFR ( Amer) 109.9 99.2 Est GFR (Non-Af Amer) 94.8 85.6 BUN/Creatinine Ratio 26.8 H 24.1 H (10-20) Glucose 87 179 H (70-99) mg/dl Calcium 9.6 8.8 (8.5-10.1) mg/dl Crossmatch 04/01/20 Range/Units 06:35 WBC (4.8-10.8) K/uL RBC (4.2-5.4) M/uL Hgb (12.0-16.0) g/dL Hct (37-47) % MCV (80-100) fL MCH (25-34) pg MCHC (32-36) g/dL RDW Std Deviation (36.4-46.3) fL RDW Coeff of Dipesh (11.5-14.5) % Plt Count (130-400) K/uL MPV (7.4-10.4) fL Immature Gran % (Auto) % Neut % (Auto) % Lymph % (Auto) % [place] % (Auto) % Eos % (Auto) % Baso % (Auto) % Neut # (Auto) (1.4-6.5) K/uL Lymph # (Auto) (1.2-3.4) K/uL [place] # (Auto) (0.11-0.59) K/uL Eos # (Auto) (0-0.5) K/uL Baso # (Auto) (0-0.2) K/uL Immature Gran # (Auto) (0.00-0.02) K/uL Sodium (136-145) mmol/L Potassium (3.5-5.1) mmol/L Chloride (98-107) mmol/L Carbon Dioxide (21-32) mmol/L Anion Gap (3-11) BUN (7-18) mg/dl Creatinine (0.6-1.2) mg/dl Est Cr Clr Drug Dosing ml/min Est GFR ( Amer) Est GFR (Non-Af Amer) BUN/Creatinine Ratio (10-20) Glucose (70-99) mg/dl Calcium (8.5-10.1) mg/dl Crossmatch See Detail PG Care Time/CCT Total # of Minutes Spent Total Time Spent with Patient: Total time spent is greater than 50% in coordination of care (as documented) at patient's floor/unit and/or counseling patient: Coding Level of Care Code 92836 Subseq Hosp Care Lvl 2 Diagnoses Neurogenic claudication due to lumbar spinal stenosis M48.062 COPD (chronic obstructive pulmonary disease) J44.9 Hyperlipidemia E78.5 Osteoporosis M81.0 Monoclonal gammopathy of undetermined significance D47.2 Degenerative disc disease, cervical M50.30 Vertigo R42
--- NOTE | 2020-04-04 11:38 | Discharge Summary ---
Date of Service April 04, 2020 Admission HPI Per Admitting Provider This is a 65-year-old presents with chronic persistent back and leg pain. After failing course of nonoperative care she is here for surgical invention. Principal Diagnosis Lumbar spinal stenosis with spondylolisthesis and neurogenic claudication Discharge Data Allergies Allergy/AdvReac Type Severity Reaction Status Date / Time capsaicin Allergy Severe Hives Verified 04/01/20 06:56 diclofenac Allergy Severe Hives Verified 04/01/20 06:56 Diclopak Allergy Severe HIVES Unverified 11/18/16 06:48 alendronate sodium AdvReac Unknown Developed Verified 04/01/20 06:56 esophageal ulcer risedronate sodium AdvReac Unknown Constipatio Verified 04/01/20 06:56 n varenicline AdvReac Unknown "Mean" Verified 04/01/20 06:56 Consultations 04/01/20 11:54 Consult Case Management - Discharge Planning Routine Consult Hospitalist Routine Procedures Performed Operation Date: 04/01/20 07:45 Actual Procedures p L4-S1 Decompression and Fusion, application of Infuse, interbody cage L4-L5, interbody cage L5-S1, Spinal Cord Monitoring(Not Applicable) - Naveen Smith DO Ordered Studies 04/01/20 07:45 FL fluoroscopy <1hr Routine FL lumbar spine 2-3V Routine Hospital Course (1) Neurogenic claudication due to lumbar spinal stenosis: Patient went lumbar decompression fusion tolerated as well as taken to orthopedic for postoperative. Postop day 1 she was up and ambulating post postop #2 on postop day #3 she was discharged home. Discharge orders and instructions found in chart for further review. Total Time Total Time Spent Total Time Spent (In Minutes): 20 minutes Discharge Plan Discharge Items Patient Disposition: Home - Self-Care Reason For Visit: Spondylolisthesis Lumbar Region Discharge Diagnosis: Lumbar spinal stenosis with spinal listhesis Activity: As commented below Non-emergency contact: Primary Care Provider Call non-emergency contact if: you have any medication questions Follow-up/Referrals: Rodriguez Espino MD [Primary Care Provider] - Diet: Regular Addtl Attending Provider Instructions: ACTIVITY RECOMMENDATIONS: SELF CARE INSTRUCTIONS AFTER THORACIC/LUMBAR FUSIONS 1. You may walk to your tolerance. It is good exercise for your legs and back. Expect some back and intermittent leg aches and pains. 2. You may perform "counter-top" level activities (make a sandwich, juventino with a project, etc.). 3. No bending or lifting of more than 10 pounds or back twisting of any nature (roll like a log when turning in bed). 4. You may ride in a car for 20-30 minutes at a time. No driving until after your first visit with your doctor. 5. Frequent changes of position and restricting sitting to 30 minutes at a time will help limit the amount of back spasms and stiffness you may experience. 6. You may discontinue the use of ambulatory aids (cane, crutches, etc.) once your strength and confidence allow. 7. You may drafting clerk the shower and let water strike your incision when you arrive home at least once daily. Do not take a tub bath, sit in a hot tub or go into a swimming pool until after your first recheck in the office. SPECIAL CARE INSTRUCTIONS: VERY IMPORTANT TO READ AND REVIEW A. Your surgical incision has been closed with a cosmetic suture under the skin that will dissolve in about 6 weeks. In 14 days, you can use a pair of clean scissors and cut the suture that is left outside of the skin at the ends of your incision. 1. The small skin tapes can be removed 7 days after surgery if they have not fallen off by that point. 2. You may keep the wound open to air as much as possible to promote healing after post-op day number 5 unless told otherwise by your doctor. 3. If you think the wound looks like it is becoming infected (redness or worsening drainage) and/or you are experiencing fever, chill or worsening back pain and muscle spasms, contact the office so that we may evaluate you as soon as possible. B. Complications are uncommon, but please contact us if you have any signs or symptoms of: 1. wound infection (fever higher than 102.5 degrees F, redness, separation of wound, drainage, or increasing pain from the incision) 2. blood clots in legs (pain, swelling, redness and warmth in legs) 3. urinary tract infection (fever higher than 102.5 degrees F, burning upon urination or increased frequency of urination) 4. nerve problems (inability to walk on your toes or heels, numbness, loss of bowel or bladder control) 5. any other symptoms that concern you C. Please call the office at if you have any concerns or questions about your operation or recovery. D. No smoking! Smoking drastically decreases the chance of a solid fusion. E. Do not take any anti-inflammatory medications (Indocin, Advil, Motrin, Aspirin, Naprosyn, etc.) as these may inhibit the chance of a solid fusion. Tylenol is okay to take for pain. MANAGING PAIN AFTER SPINAL SURGERY 1. Narcotic medication is intended for short-term use and will be provided for surgical pain. Surgical pain usually lasts for a period of 4-6 weeks. Narcotic medication includes Percocet, Vicodin, Darvocet, Tylenol #3 or Lortab. 2. Longer-term pain is more appropriately treated with non-narcotic medication such as Tylenol ES. 3. Muscle spasm is not appropriately treated with narcotics. Muscle relaxers such as Soma, Flexeril or Skelaxin can be used along with Tylenol ES. 4. Remember that we all live with some "aches and pains". This is not unusual or uncommon after an injury or as we get older. a. Back pain is expected and may include muscle spasms for 4 to 6 weeks after surgery. The pain should gradually improve. If the pain worsens for no apparent reason, please contact the office. b. Intermittent leg pain may also be experienced and should not be concerned about unless it worsens for no apparent reason. If so, please contact the office. 5. We will provide appropriate medication within the normal guidelines of their prescribed use. We will also be very cautious and aware of potential abuse and extended duration of patients' medication needs. a. Pain medications are for your comfort and to assist with sleep and rest so that the tissue can heal. They are not provided in order to return to normal activity and should not be used through the day. To do so or worsening pain at night can result from ongoing tissue damage and development of tolerance to the prescribed medicine. 6. Please allow 2-3 days to process refills. Prescriptions will not be mailed but must be picked up at the office. FOLLOW UP VISIT: Keep your scheduled follow-up appointment. Any questions, please call the office at . Pending Studies at Discharge: No Stand-Alone Forms: My [employer], Smoking Cessation Medications and DC Order Prescriptions: Continued acetaminophen [Tylenol Extra Strength] 500 mg tablet 1,000 mg PO Q6H PRN (Reason: Pain) RF: 0 aspirin [Adult Aspirin Regimen] 81 mg tablet,delayed release (DR/EC) 81 mg PO PM RF: 0 calcium carb-vitamin D3-vit K2 500 mg calcium- 200 unit-90 mcg tablet 1 tab PO PM RF: 0 docusate sodium [Colace] 100 mg capsule 100 mg PO PM RF: 0 ibuprofen 200 mg tablet 400 - 600 mg PO QID PRN (Reason: Pain) RF: 0 cholecalciferol (vitamin D3) 25 mcg (1,000 unit) capsule 5,000 unit PO PM RF: 0 Prolia 60 mg/mL syringe 60 mg SQ Q6MO Qty: 1 RF: 0 simvastatin [Zocor] 10 mg tablet 10 mg PO QPM Qty: 90 RF: 3 albuterol sulfate 90 mcg/actuation HFA aerosol inhaler 2 puff INH Q6H PRN (Reason: shortness of breath) Qty: 3 RF: 3 (DME) Oxygen Home Liters Per Minute See Dose Instructions .ROUTE .MEDSUPPLY Qty: 1 RF: 0 Macular Health Formula 5-1-7.5 mg capsule 2 cap PO BID RF: 0 Trelegy Ellipta 100-62.5-25 mcg blister with device 1 inh INH QAM Qty: 60 RF: 3 Discharge Orders: Discharge Order (Routine); Ordered 04/04/20 Ordered By: Naveen Smith Admission Data Admit Date/Time: 04/01/20 10:36 Attending Provider: Naveen Smith Admit Provider: Naveen Smith Primary Care Provider: Rodriguez Espino Other Providers: Herminio Alvarado
== END 2020-04-04 13:40 | disposition home or self-care (01) | DRG 454 ==
LOC: ASU 06:10 → 3E 10:36